=== PATIENT | female | born 1980 | race Caucasian/White ===

== ENCOUNTER → 2019-10-19 15:39 | Outpatient (BNVA) | payer BC, SELFPAY | PROVIDERS: Family Provider Internal Medicine; PCP Internal Medicine; Visit Provider Specialist | DX: G43.711 Chronic migraine without aura, intractable, with status migrainosus (principal); F41.8 Other specified anxiety disorders | CPT/HCPCS: 99213 ==

== ENCOUNTER 2019-12-13 10:01 | Outpatient (REF) | payer BC, SELFPAY ==
[2019-12-13 10:27] LABS: Basophils # 0.1 10^3/uL (0.0-0.1); Basophils % 0.8 %; Eosinophils # 0.2 10^3/uL (0.0-0.8); Eosinophils % 2.3 %; Hematocrit 40.6 % (37.0-47.0); Hemoglobin 12.9 g/dL (11.5-15.3); Lymphocytes # 2.9 10^3/uL (0.8-4.8); Mean Corpuscular HGB Conc 31.8 g/dL (30.0-36.0); Mean Corpuscular Hemoglobin 28.5 pg (28.0-34.0); Mean Corpuscular Volume 89.6 fL (81-99); Mean Platelet Volume 10.3 fL (7.4-10.4); Monocytes # 0.8 10^3/uL (0.2-0.9); Monocytes % 8.5 %; Neutrophils # 5.3 10^3/uL (1.8-7.7); Neutrophils % 57.1 %; Nucleated Red Blood Cells % 0 %; Platelet Count 454 10^3/cmm (130-400); Red Blood Count 4.53 10^6/uL (4.1-5.3); Red Cell Distribution Width 14.1 % (12.1-15.1); White Blood Count 9.2 10^3/uL (4.0-10.0)
[2019-12-14 14:55] LABS: Alternaria Alternata (M6) Ige <0.10 kU/L; Alternaria Class 0; Bermuda Class 0; Bermuda Grass (G2) Ige <0.10 kU/L; Cat Dander (E1) Ige <0.10 kU/L; Cat Dander Class 0; Common Ragweed (Short) (W1) Ig <0.10 kU/L; D. Farinae Class 0/1; Dermatophagoides Class 0/1; Dermatophagoides Farinae (D2) 0.27 kU/L; Dermatophagoides Pteronyssinus 0.24 kU/L; Dog Dander (E5) Ige <0.10 kU/L; Dog Dander Class 0; Elm (T8) Ige <0.10 kU/L; Elm Class 0; English Plantain (W9) Ige <0.10 kU/L; English Plantain Class 0; House Dust (Greer) (H1) Ige 0.46 kU/L; House Dust (Hollister- Stier) 0.34 kU/L; House Dust Class 0/1; House Dust Class 1; Immunoglobulin E 62 kU/L (<OR=114); Immunoglobulin E 65 kU/L (<OR=114); Johnson Grass (G10) Ige <0.10 kU/L; Johnson Grass Cl 0; June Grass Class 0; June Grass(Kentucky Blue) (G8) <0.10 kU/L; Lamb'S Quarters (Goose Foot) <0.10 kU/L; Lamb'S Quarters Class 0; Maple (Box Elder) (T1) Ige <0.10 kU/L; Maple Class 0; Meadow Fescue (G4) Ige <0.10 kU/L; Meadow Fescue Class 0; Mucor Racemosus Class 0; Oak (T7) Ige <0.10 kU/L; Oak Class 0; Orchard Grass (Cocksfoot) (G3) <0.10 kU/L; Penicillium Class 0; Penicillium Notatum (M1) Ige <0.10 kU/L; Perennial Rye Grass (G5) Ige <0.10 kU/L; Perennial Rye Grass Class 0; Ragweeed Class 0; Rough Marsh Elder (W16) Ige <0.10 kU/L; Rough Marsh Elder Class 0; Sweet Vernal Class 0; Sweet Vernal Grass (G1) Ige <0.10 kU/L; Timothy Grass (G6) Ige <0.10 kU/L; Timothy Grass Class 0
[2019-12-15 18:46] LABS: Aspergillus Fumigatus, Igg Ab, 47.1 mg/L (<=102)
== END 2019-12-13 10:02 | disposition home or self-care (01) ==
LOC: LAB 10:01
PROVIDERS: Family Provider Internal Medicine; PCP Internal Medicine; Visit Provider Internal Medicine Critical Care Medicine
DX: R06.02 Shortness of breath (principal)
CPT/HCPCS: 82785; 85025; 86003

== ENCOUNTER 2020-03-08 09:48 | Outpatient (CLI) | payer BC, SELFPAY ==
--- NOTE | 2020-03-08 10:35 | PFTS_ITS ---
Date of Study:03/08/20 Date of Dictation: MECHANICS: Forced vital capacity (FVC) is normal. Forced expiratory volume in one second (FEV1) is normal. FEV1/FVC is normal. FLOW VOLUME LOOP: Normal. LUNG VOLUMES: Total lung capacity (TLC) is normal. Residual volume (RV) is normal. DIFFUSING CAPACITY FOR CARBON MONOXIDE: Normal. INTERPRETATION: The pulmonary function tests are normal. Lung volumes are normal. Gas exchange (DLCO) is normal. MTDD
== END 2020-03-08 09:49 | disposition home or self-care (01) ==
LOC: RT 09:53
PROVIDERS: PCP Internal Medicine; Visit Provider Internal Medicine Critical Care Medicine
DX: R06.02 Shortness of breath (principal)
CPT/HCPCS: 94010; 94726; 94729

== ENCOUNTER → 2024-01-12 10:14 | Outpatient (BNVA) | payer BC, SELFPAY | PROVIDERS: PCP Family Medicine; Referring Provider Family Medicine; Visit Provider Internal Medicine Rheumatology | DX: Z79.899 Other long term (current) drug therapy (principal); M19.90 Unspecified osteoarthritis, unspecified site; Z11.59 Encounter for screening for other viral diseases; Z13.1 Encounter for screening for diabetes mellitus | CPT/HCPCS: 36415; 73130; 73562; 73630; 80076; 82306; 82565; 83036; 83520; 85025; 85651; 86140; 86480; 86704; 86803; 86812; 87340 ==

== ENCOUNTER 2024-08-25 11:17 | Outpatient (CLI) | payer BC, SELFPAY ==
[2024-08-25 12:08] LABS: Basophils # 0.1 10^3/uL (0.0-0.1); Basophils % 1.1 %; Eosinophils # 0.4 10^3/uL (0.0-0.8); Eosinophils % 5.2 %; Hematocrit 33.1 % (36-47); Lymphocytes # 2.2 10^3/uL (0.8-4.8); Lymphocytes % 29.7 %; Mean Corpuscular HGB Conc 30.2 g/dL (30-55); Mean Corpuscular Hemoglobin 25.1 pg (27-33); Mean Corpuscular Volume 83.2 fl (85-98); Mean Platelet Volume 9.4 fL (7.4-10.4); Monocytes # 0.8 10^3/uL (0.2-0.9); Neutrophils # 3.94 10^3/uL (1.8-7.7); Neutrophils % 52.6 %; Nucleated Red Blood Cells % 0 %; Platelet Count 615 10^3/cmm (157-399); Red Blood Count 3.98 10^6/uL (3.85-5.65); Red Cell Distribution Width 16.1 % (12.1-15.1); White Blood Count 7.48 10^3/uL (3.29-11.43)
[2024-08-25 12:19] LABS: Erythrocyte Sedimentation Rate 30 mm/hr (0-15)
[2024-08-25 12:29] LABS: Alanine Aminotransferase 19 U/L (0-33); Albumin Level 3.9 g/dL (3.5-5.2); Alkaline Phosphatase 77 U/L (35-105); Aspartate Amino Transferase 27 U/L (0-32); C Reactive Protein 9.8 mg/L (0.0-4.9); Globulin 3.2 g/dL (1.3-4.6); Glomerular Filtration Rate 133.4 mL/min (90-130); Total Bilirubin 0.2 mg/dL (0.15-1.2); Total Protein 7.1 g/dL (6.6-8.7)
== END 2024-08-25 11:18 | disposition home or self-care (01) ==
PROVIDERS: PCP Family Medicine; Visit Provider Internal Medicine Rheumatology
DX: Z79.899 Other long term (current) drug therapy (principal); M06.00 Rheumatoid arthritis without rheumatoid factor, unspecified site
CPT/HCPCS: 36415; 80076; 82565; 85025; 85651; 86140

== ENCOUNTER 2024-11-29 10:55 | Outpatient (CLI) | payer OTHER, SELFPAY ==
[2024-11-29 11:45] LABS: Basophils # 0.1 10^3/uL (0.0-0.1); Eosinophils # 0.4 10^3/uL (0.0-0.8); Eosinophils % 4.4 %; Hematocrit 33.7 % (36-47); Lymphocytes # 2.7 10^3/uL (0.8-4.8); Lymphocytes % 29.6 %; Mean Corpuscular HGB Conc 30.3 g/dL (30-55); Mean Corpuscular Hemoglobin 24.1 pg (27-33); Mean Corpuscular Volume 79.5 fl (85-98); Mean Platelet Volume 9.8 fL (7.4-10.4); Monocytes # 0.7 10^3/uL (0.2-0.9); Neutrophils # 5.19 10^3/uL (1.8-7.7); Neutrophils % 56.3 %; Nucleated Red Blood Cells % 0 %; Platelet Count 487 10^3/cmm (157-399); Red Blood Count 4.24 10^6/uL (3.85-5.65); Red Cell Distribution Width 17.2 % (12.1-15.1); White Blood Count 9.22 10^3/uL (3.29-11.43)
[2024-11-29 11:52] LABS: Erythrocyte Sedimentation Rate 19 mm/hr (0-15)
[2024-11-29 12:26] LABS: Alanine Aminotransferase 39 U/L (0-33); Alkaline Phosphatase 90 U/L (35-105); Aspartate Amino Transferase 35 U/L (0-32); C Reactive Protein 7.3 mg/L (0.0-4.9); Globulin 2.8 g/dL (1.3-4.6); Glomerular Filtration Rate 107.6 mL/min (90-130); Total Bilirubin 0.2 mg/dL (0.15-1.2); Total Protein 6.8 g/dL (6.6-8.7)
== END 2024-11-29 10:56 | disposition home or self-care (01) ==
LOC: LAB 10:58
PROVIDERS: PCP Family Medicine; Visit Provider Internal Medicine Rheumatology
DX: Z79.899 Other long term (current) drug therapy (principal); M06.00 Rheumatoid arthritis without rheumatoid factor, unspecified site
CPT/HCPCS: 36415; 80076; 82565; 85025; 85651; 86140

== ENCOUNTER → 2025-03-23 12:55 | Outpatient (BNVA) | payer OTHER, SELFPAY | PROVIDERS: PCP Family Medicine; Visit Provider Internal Medicine Rheumatology | DX: Z79.899 Other long term (current) drug therapy (principal) | CPT/HCPCS: 36415; 80076; 82306; 82565; 82607; 84439; 84443; 85025; 85651; 86140 ==

== ENCOUNTER 2025-08-02 11:33 | Outpatient (CLI) | payer OTHER, SELFPAY ==
[2025-08-02 12:10] LABS: Hematocrit 32.4 % (36-47); Hemoglobin 10.00 g/dL (11.27-16.99); Mean Corpuscular HGB Conc 30.9 g/dL (30-55); Mean Corpuscular Hemoglobin 26.4 pg (27-33); Mean Corpuscular Volume 85.5 fl (85-98); Nucleated Red Blood Cells % 0 %; Platelet Count 508 10^3/cmm (157-399); Red Blood Count 3.79 10^6/uL (3.85-5.65); White Blood Count 10.41 10^3/uL (3.29-11.43)
[2025-08-02 12:46] LABS: Alanine Aminotransferase 33 U/L (0-33); Albumin Level 4.1 g/dL (3.5-5.2); Alkaline Phosphatase 75 U/L (35-105); Aspartate Amino Transferase 34 U/L (0-32); Globulin 3.0 g/dL (1.3-4.6); Total Protein 7.1 g/dL (6.6-8.7)
== END 2025-08-02 11:34 | disposition home or self-care (01) ==
LOC: LAB 11:35
PROVIDERS: PCP Family Medicine; Visit Provider Internal Medicine Rheumatology
DX: Z79.899 Other long term (current) drug therapy (principal); M06.041 Rheumatoid arthritis without rheumatoid factor, right hand; M06.042 Rheumatoid arthritis without rheumatoid factor, left hand; E55.9 Vitamin D deficiency, unspecified
CPT/HCPCS: 36415; 80076; 82306; 82565; 85025; 85651; 86140

== ENCOUNTER 2025-08-14 00:26 | Emergency (ER) | payer OTHER, SELFPAY ==
[2025-08-14] VITALS (7 sets, daily range): BP systolic 109–177; BP diastolic 64–88; PULSE 102–116; RESP 18–25; TEMP 37.5–37.6; O2SAT 90–97
--- OUTSIDE RECORDS SUMMARY | 2025-08-14 00:36 | XMS_ITS | Encounter Summary ---
Author Organization [facility] Address [address] [place] [address] Care Team Providers Care Head Worker Name Role Phone Unavailable Primary Care Provider Unavailabl e Encounter Details Date Type Department Care Team (Latest Contact Info) Description 10/19/2003 Outpatient Historical [facility] Medicine- [address] [phone] Eugene Giordano MD [address] [address] MIGRAINE NOS W/O MENTN INTRACTABLE (Primary Dx) Social History Tobacco Use Types Packs/Day Years Used Date Smoking Tobacco: Never Assessed Comments Unknown Sex and Gender Information Value Date Recorded Sex Assigned at Not on file Legal 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
--- OUTSIDE RECORDS SUMMARY | 2025-08-14 00:36 | XMS_ITS | Encounter Summary ---
Author Organization [facility] Address [address] [place] [address] Care Team Providers Care Framing Machine Tender Name Role Phone Unavailable Primary Care Provider Unavailabl e Encounter Details Date Type Department Care Team (Latest Contact Info) Description 12/12/2003 Outpatient Historical 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
--- OUTSIDE RECORDS SUMMARY | 2025-08-14 00:36 | XMS_ITS | Encounter Summary ---
Author Organization [facility] Address [address] [place] [address] Care Team Providers Care Manager Women Name Role Phone Unavailable Primary Care Provider Unavailabl e Encounter Details Date Type Department Care Team (Latest Contact Info) Description 04/25/2004 Outpatient Historical [facility] Medicine- [address] [phone] Laura Trejo [address] [place] [address] MIGRAINE NOS W/O MENTN INTRACTABLE (Primary Dx) Social History Tobacco Use Types Packs/Day Years Used Date Smoking Tobacco: Never Assessed Comments Unknown Sex and Gender Information Value Date Recorded Sex Assigned at Not on file 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
--- OUTSIDE RECORDS SUMMARY | 2025-08-14 00:36 | XMS_ITS | Encounter Summary ---
Author Organization [facility] Address [address] [place] [address] Care Team Providers Care A And P Mechanic Name Role Phone Unavailable Primary Care Provider Unavailabl e Encounter Details Date Type Department Care Team (Latest Contact Info) Description 11/16/2003 Outpatient Historical [facility] Medicine- [address] [phone] Eugene Giordano MD [address] [phone] MIGRAINE NOS W/O MENTN INTRACTABLE (Primary Dx) Social History Tobacco Use Types Packs/Day Years Used Date Smoking Tobacco: Never Assessed Comments Unknown Sex and Gender Information Value Date Recorded Sex Assigned at Not on file 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
--- OUTSIDE RECORDS SUMMARY | 2025-08-14 00:36 | XMS_ITS | Encounter Summary ---
Author Organization [facility] Address [address] [place] [address] Care Team Providers Care Seafood Fisherman Name Role Phone Unavailable Primary Care Provider Unavailabl e Encounter Details Date Type Department Care Team (Latest Contact Info) Description 01/25/2004 Outpatient Historical [facility] Medicine- [address] [phone] Eugene Giordano MD [address] [phone] FEVER (Primary Dx) Social History Tobacco Use Types Packs/Day Years Used Date Smoking Tobacco: Never Assessed Comments Unknown Sex and Gender Information Value Date Recorded Sex Assigned at Not on file 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
--- OUTSIDE RECORDS SUMMARY | 2025-08-14 00:36 | XMS_ITS | Encounter Summary ---
Author Organization [facility] Address [address] [place] [address] Care Team Providers Care Armature Winder Repair Name Role Phone Unavailable Primary Care Provider Unavailabl e Encounter Details Date Type Department Care Team (Latest Contact Info) Description 12/20/2003 Outpatient Historical [facility]- Nahum Rosasnn Alysa [address] [phone] Heaven Edwards, SANFORIZING MACHINE OPERATOR [address] [place], [place] [phone] ACUTE CONJUNCTIVITIS NOS (Primary Dx); ACUTE SINUSITIS NOS Social History Tobacco Use Types Packs/Day Years Used Date Smoking Tobacco: Never Assessed Comments Unknown Sex and Gender Information Value Date Recorded Sex Assigned at Not on file Legal Sex Female 2:36 AM SEAT COVER CUTTER Gender Identity Not on file Sexual Orientation Not on file documented as of this encounter Plan of Treatment Not on file documented as of this encounter Visit Diagnoses Diagnosis Acute conjunctivitis, unspecified- Primary Acute sinusitis, unspecified documented in this encounter
--- OUTSIDE RECORDS SUMMARY | 2025-08-14 00:37 | XMS_ITS | Encounter Summary ---
Author Organization [facility] Address [address] [place] [address] Care Team Providers Care Technical Document Writer Name Role Phone Unavailable Primary Care Provider Unavailabl e Encounter Details Date Type Department Care Team (Latest Contact Info) Description 06/08/[address] 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
--- OUTSIDE RECORDS SUMMARY | 2025-08-14 00:37 | XMS_ITS | Encounter Summary ---
Author Organization [facility] Address [address] [place] [address] Care Team Providers Care Test Rider Name Role Phone Unavailable Primary Care Provider Unavailabl e Encounter Details Date Type Department Care Team (Latest Contact Info) Description 03/31/2000 Outpatient Historical [facility] [place]- [place] [address] [place] [phone] Laura Lui [address] [place] [address] Streptococcal sore throat (Primary Dx) Social History Tobacco Use Types Packs/Day Years Used Date Smoking Tobacco: Never Assessed Comments Unknown Sex and Gender Information Value Date Recorded Sex Assigned at Not on file Legal Sex Female 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
--- OUTSIDE RECORDS SUMMARY | 2025-08-14 00:37 | XMS_ITS | Encounter Summary ---
Author Organization [facility] Address [address] [place] [address] Care Team Providers Care Ct Technologist Name Role Phone Unavailable Primary Care Provider Unavailabl e Encounter Details Date Type Department Care Team (Latest Contact Info) Description 07/30/1999 Outpatient Historical [facility] Oneal Lewis MD [address] [place] [phone] Acute tonsillitis (Primary Dx) Social History Tobacco Use Types Packs/Day Years Used Date Smoking Tobacco: Never Assessed Comments Unknown Sex and Gender Information Value Date Recorded Sex Assigned at Not on file Legal 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
--- OUTSIDE RECORDS SUMMARY | 2025-08-14 00:37 | XMS_ITS | Clinical Summary ---
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 Gender Identity Not on file Sexual Orientation Not on file Plan of Treatment Health Maintenance Due Date Last Done Comments DTAP/TDAP/TD VACCINES (1 - Tdap) 1997 HEPATITIS B VACCINES (1 of 3 - 19+ 3-dose series) 1997 01/28/2003, 08/20/2002, 07/02/2002 HPV/Cotest (21-29) 1999 CERVICAL CANCER SCREENING 2008 HPV/Cotest (30-65) 2008 PAP SMEAR 2008 BREAST CANCER SCREENING 2018 COLORECTAL SCREENING 2023 Colorectal Cancer Screening 2023 FIT-DNA Q 3 years 2023 FIT/FOBT Q 1 year 2023 Flex Sig/CT Colonography Q 5 years 2023 INFLUENZA VACCINE (#1) 2025 HPV VACCINES Aged Out No longer eligi ble based on patient's age to complete this topic
--- OUTSIDE RECORDS SUMMARY | 2025-08-14 00:37 | XMS_ITS | Data Portability ---
Author Organization [place] [facility] Address [address] [address] Care Team Providers Care Senior Architect Name Role Phone JUDITH VASQUEZ Primary Care Provider [phone] Assessment Encounter Date Assessment Date Assessment LastModified by Organization Details LastModified Time 02/16/2018 02/16/2018 15 min exam and discussion, over 50% face to face counseling [email or web address] Not available 02/16/2018 18:26:01 02/18/2018 02/18/2018 25 min exam and discussion, over 50% face to face counseling [email or web address] Not available 02/18/2018 10:30:18 Plan of Treatment Reminders Order Date Submit Date Provider Last Modified By Organization Details Last Modified Time Details Appointments None recorded. Lab lh (luteinizi ng hormone), serum 2017 018 BO [facility], [address], [place], [address], 8 17:04:13 Referral None recorded. Procedures artificial inseminati on, intrauteri ne (PROC) 2017 018 [email or web address] Not available 8 10:50:36 sperm washing for artificial inseminati on (PROC) 2017 018 BO Not available 8 12:07:21 sperm washing for artificial inseminati on (PROC) 2016 017 [email or web address] Not available 7 11:18:44 artificial inseminati on, intrauteri ne (PROC) 2016 017 [email or web address] Not available 7 12:03:36 Surgeries None recorded. Imaging US, transvagin al 2017 018 BO Not available 8 11:54:33 US, transvagin al 2017 018 BO Not available 8 11:52:33 US, transvagin al 2017 018 BO Not available 8 12:50:38 Medication Orders letrozole 2.5 mg tablet 2017 018 INTERFACE [id number], [address], [place], [place], [id number], 8 12:20:32 dexamethas one 2 mg tablet 2017 018 INTERFACE [facility] #[id number], [address], [place], [place], [id number], 8 12:20:32 Ovidrel 250 mcg/0.5 mL subcutaneo us syringe 2017 018 INTERFACE [facility], [address] [place] [address], [address], 8 12:29:18 Patient TargetsNo targets recorded. Patient InstructionsNo instructions recorded. Reason for Referral None Reported. Results Created Date Observation Date Name Description Value Unit Range Abnormal Flag Note LastModifiedBy Organization Detail LastModifiedTime 07/18/20 17 07/18/2017 sperm washi ng for artif icial insem inati on (PROC ) PRE-WASH MOTILE Not Available [facility] [address], [place], [address], 07/18/2017 11:15:42 07/18/20 17 07/18/2017 sperm washi ng for artif icial insem inati on (PROC ) POST-WASH MOTILE Not Available [facility] [address], [place], [address], 07/18/2017 11:15:42 07/18/20 17 07/18/2017 sperm washi ng for artif icial insem inati on (PROC ) PRE-WASH VOLUME 4.5cc Not Available [facility] [address], [place], [address], 07/18/2017 11:15:42 07/18/20 17 07/18/2017 sperm washi ng for artif icial insem inati on (PROC ) INSEMINATION VOLUME 0.5cc Not Available [facility] [address], [place], [address], 07/18/2017 11:15:42 07/18/20 17 07/18/2017 sperm washi ng for artif icial insem inati on (PROC ) INSEMINATION BY HUSBAN D Not Available [facility] [address], [place], [address], 07/18/2017 11:15:42 03/02/20 18 03/02/2018 sperm washi ng for artif icial insem inati on (PROC ) PRE-WASH MOTILE Not Available [facility] [address], [place], [address], 02/18/2018 10:23:07 03/02/20 18 03/02/2018 sperm washi ng for artif icial insem inati on (PROC ) POST-WASH MOTILE Not Available [facility] [address], [place], [address], 02/18/2018 10:23:07 03/02/20 18 03/02/2018 sperm washi ng for artif icial insem inati on (PROC ) INSEMINATION VOLUME 0.4cc Not Available [facility] [address], [place], [address], 02/18/2018 10:23:07 03/02/20 18 03/02/2018 sperm washi ng for artif icial insem inati on (PROC ) INSEMINATION BY HUSBAN D Not Available [facility] [address], [place], [address], 02/18/2018 10:23:07 07/07/20 17 07/07/2017 US, trans vagin al No observ ation record ed. Not Available 2016 15:05:43 07/08/20 17 07/07/2017 imagi ng/di agnos tic resul t No observ ation record ed. [facility] Not Available 2016 07:58:42 07/14/20 17 07/14/2017 US, trans vagin al No observ ation record ed. [email or web address] Not Available 2016 10:52:49 07/15/20 17 07/14/2017 imagi ng/di agnos tic resul t No observ ation record ed. [facility] [address] [facility] [address], [place], [address], 07/15/2017 17:33:12 02/07/20 18 US, trans vagin al No observ ation record ed. [email or web address] Not Available 2017 11:48:16 02/11/20 18 02/06/2018 imagi ng/di agnos tic resul t No observ ation record ed. [facility] [address] [facility] [address], [place], [address], 02/10/2018 16:37:40 02/14/20 18 US, trans vagin al No observ ation record ed. [email or web address] Not Available 2017 11:52:13 02/17/20 18 02/16/2018 US, trans vagin al No observ ation record ed. [email or web address] Not Available 2017 13:47:21 02/17/20 18 02/13/2018 imagi ng/di agnos tic resul t No observ ation record ed. [facility] [address], [place], [address], 02/16/2018 16:15:52 02/18/20 18 02/16/2018 imagi ng/di agnos tic resul t No observ ation record ed. [facility] [address], [place], [address], 02/17/2018 10:27:25 Result Notes None recorded. Problems Name Problem SNOMED Code Status Onset Date Resolution Date Notes Provider Name and Address Organization Details Recorded Time History of anemia 092561631 Active 2016 sister and maternal grandmother have had issues with iron level as well pt is getting rechecked in 01/2017 [place] - [facility] 7 18:01:59 Migraine 16417616 Active 2016 Bowen HOWARD Sharma - [facility] [place] 7 18:02:12 Nausea 812840605 Active 2016 Mild Bowen Carlton rosa [place] - [facility] [place] 7 14:17:43 Problem Notes None recorded. Procedures Surgical History Date Name Laterality Status Provider Name and Address Organization Details Recorded Time 8 Artificial Insemination, (AIH) completed Lana Carroll MSN, CNP- [address] [facility] [address], [place], [address], [facility] 02/18/2018 10:22:52 Imaging Results None recorded. Procedure Notes None recorded. Medical Equipment None Reported. Allergies Allergen ID Allergen Name Allergen Category Reaction Reaction Severity Criticality Documentation Date Start Date Code Code System Note Provider Name and Address Organization Details Recorded Time 49316 Substance with sulfonami de structure and antibacte rial mechanism of action (substanc e) medicatio n Not available Not available Not available 12/02/2016 68462 8003 SNOMED HOWARD Jurado - [facility] [place] 7 15:27:57 17758 erythromy kayden medicatio n Not available Not available Not available 12/02/2016 4053 RxNorm HOWARD Jurado - [facility] [place] 7 15:28:04 34706 Topamax medicatio n Not available Not available Not available 12/02/2016 88331 3 RxNorm Crystal lee [place] - [facility] [place] 7 15:28:14 Medications Name Sig Start Date Stop Date Status Note LastModified by Organization Details LastModified Time medroxypr ogesteron e 10 mg tablet TK 1 T PO QD FOR 10 DAYS 02/18 completed Not Available Not Available Not Available budesonid e 32 mcg/actua tion nasal spray USE 2 SPRAYS IN EACH NOSTRIL QD. 12/02 completed Not Available Not Available Not Available promethaz ine-DM 6.25 mg-15 mg/5 mL oral syrup TK 5-10 ML TID 02/06 completed Not Available Not Available Not Available prednison e 10 mg tablet 03/17 completed Not Available Not Available Not Available doxycycli ne hyclate 100 mg capsule 12/02 completed Not Available Not Available Not Available cefuroxim e axetil 250 mg tablet 12/02 completed Not Available Not Available Not Available ofloxacin 0.3 % eye drops 12/02 completed Not Available Not Available Not Available clomiphen e citrate 50 mg tablet TK 2 TS PO QD DIRECTED FOR 5 DAYS 02/18 completed Not Available Not Available Not Available prednison e 20 mg tablet 02/06 completed Not Available Not Available Not Available prednison e 5 mg tablet 12/02 completed Not Available Not Available Not Available amoxicill in 875 mg tablet TK 1 T PO BID 02/06 completed Not Available Not Available Not Available doxycycli ne monohydra te 100 mg capsule 02/06 completed Not Available Not Available Not Available dexametha sone 2 mg tablet Take 1 tablet every day by oral route as directed for 10 days. active Not Available Not Available No t Available ferrous sulfate 325 mg (65 mg iron) tablet TK 1 T PO D 12/02 completed Not Available Not Available Not Available neomycin- polymyxin -dexameth 3.5 mg/mL-10, 000 unit/mL-0 .1% eye drops 02/06 completed Not Available Not Available Not Available promethaz ine 25 mg tablet 12/02 completed Not Available Not Available Not Available progester one micronize d 200 mg capsule TK 1 C PO QD UTD active Not Available Not Available No t Available estradiol 2 mg tablet one daily as directed active Not Available Not Available No t Available monteluka st 10 mg tablet TK 1 T PO QD active Not Available Not Available No t Available ergocalci ferol (vitamin D2) 1,250 mcg (50,000 unit) capsule TK 1 C PO Q WK UTD 02/06 completed Not Available Not Available Not Available letrozole 2.5 mg tablet Take 3 tablets every day by oral route as directed for 5 days. active Not Available Not Available No t Available loratadin e 10 mg tablet TK 1 T PO D 02/18 completed Not Available Not Available Not Available amoxicill in 875 mg-potass ium clavulana te 125 mg tablet 12/02 completed Not Available Not Available Not Available [employer]-[facility] 30 mg tablet TAKE 1 TO 2 TABLETS PO QID PRN 02/06 completed Not Available Not Available Not Available Ovidrel 250 mcg/0.5 mL subcutane ous syringe Inject 0.5 mL every day by subcutan eous route as directed for 1 day. 2017 active Not Available Not Available Not Avai lable Mucinex D 60 mg-600 mg tablet,ex tended release TK 1 T PO BID 12/02 completed Not Available Not Available Not Available Vitamin C active Not Available Not Melissa ilable Not Available Maxitrol 07/07 completed Not Available Not Available Not Available garlic active Not Available Not Availa ble Not Available Excedrin Migraine active Not Available Not Available Not Available active Not Available Not Avai lable Not Available Leg Cramp Relief active Not Available Not Available Not Available ProAir HFA 90 mcg/actua tion aerosol inhaler INHALE 1 TO 2 PUFFS PO TID UNTIL COUGH IS COMPLETE LY GONE active Not Available Not Available No t Available Symbicort 160 mcg-4.5 mcg/actua tion HFA aerosol inhaler Inhale 2 puffs twice a day by inhalati on route. 07/07 completed Not Available Not Available Not Available loratadin e 10 mg capsule Take by oral route. 02/18 completed allergy medicati on Not Available Not Available Not Available Vitals Date Recorded Body height Body mass index (BMI) Body weight Systolic And Diastolic Provider Name and Address Organization Details Last Updated DateTime 02/06/2018 165.1 cm 34.9 kg/m2 40258.4 g 110/72 mm[Hg] Catherine Antonio [place] - [facility] [place] 02/06/2018 11:54:38 Date Recorded Body height Body mass index (BMI) Body weight Systolic And Diastolic Provider Name and Address Organization Details Last Updated DateTime 02/13/2018 165.1 cm 34.9 kg/m2 58656.4 g 106/62 mm[Hg] Bravo Major [place] - [facility] [place] 02/13/2018 11:55:36 Date Recorded Body height Body mass index (BMI) Body weight Systolic And Diastolic Provider Name and Address Organization Details Last Updated DateTime 02/16/2018 165.1 cm 35.1 kg/m2 85429.99 g 96/66 mm[Hg] Bushra Dooley [place] - [facility] [place] 02/16/2018 14:03:41 Date Recorded Body height Body mass index (BMI) Body weight Systolic And Diastolic Provider Name and Address Organization Details Last Updated DateTime 02/18/2018 165.1 cm 35.1 kg/m2 90141.99 g 116/68 mm[Hg] Bravo Major [place] - [facility] [place] 02/18/2018 09:44:17 Date Recorded Body height Body mass index (BMI) Body weight Systolic And Diastolic Provider Name and Address Organization Details Last Updated DateTime 07/18/2017 165.1 cm 39.4 kg/m2 107805.39 g 122/74 mm[Hg] Catherine Antonio [place] - [facility] [place] 07/18/2017 10:37:57 Social History Question Answer Notes LastModified by Organizat ion Details LastModified Time Tobacco Smoking Status Never Smoker HOWARD Jurado - [facility] [place] 12/02/2016 15:30:37 What Is Your Level Of Caffeine Consumption? Moderate [email or web address] Information not available 12/02/2016 Illicit Drugs No Information not available 12/02/2016 Marital Status [email or web address] Informatio n not available 12/02/2016 What Was The Date Of Your Most Recent Tobacco Screening? 02/18/2018 Information n ot available 04/07/2019 How Many Children Do You Have? 0 [email or web address] Information not available 12/02/2016 Are You Sexually Active? Yes [email or web address] Information not available 12/02/2016 How Much Tobacco Do You Smoke? No Information not available 02/18/2017 How Many Years Have You Smoked Tobacco? 0 Information not available 02/18/2017 Sex: Unknown Functional Status Question Answer Note LastModified by Organization Details LastModified Time What is your level of alcohol consumption? Occasional [email or web address] Information not available 12/02/2016 Urinary incontinence assessment performed? 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 Occasional [email or web address] Information not available 07/14/2017 Mental Status None recorded. Family History Relationship Description Onset Age of this Age Resolved Age Notes LastModified by Organization Details LastModified Time Maternal Grandmother Malignant neoplasm of uterus [email or web address] Not available 2016 17:58:08 Maternal Grandmother Malignant neoplasm of skin [email or web address] Not available 2016 17:58:43 Maternal Grandmother Hypoglycemia [email or web address] Not available 12/23/2016 17:59:36 Paternal Grandmother Malignant neoplasm of uterus [email or web address] Not available 2016 17:58:08 Paternal Grandmother Malignant neoplasm of lung due to smokin g Not available 12/23/2016 18:00:14 Mother Malignant neoplasm of skin [email or web address] Not available 2016 17:58:43 Mother Hypertensive disorder [email or web address] Not available 2016 17:58:49 Mother Hypothyroidi sm Hashim luis's [email or web address] Not available 12/23/2016 17:59:18 Sister Endometriosi s of uterus Hyst [email or web address] Not available 12/14 18:00:47 Notes:pre cx/ec cancer- sist er Medical History Condition Response Diabetes N Blood Clots/DVT N Ovarian cancer N Influenza Vaccine Y Thyroid disease N Endometriosis N Breast Cancer N Hyperlipidemia N Heart Disease N Hypertension N Gynecological History Statement/Question Response Last Biopsy Date Denies Prior pap date 05/2016 Duration of Flow (days) 5 Prior DXA date None Prior Mammogram date None If over 50 or menopausal current vit d d ose 50,000 iu Prior colonoscopy date N Significant pain with periods? N Current Control Method None Frequency of Cycle (Q days) 28 daily calcium supplement intake none Date of LMP 02/03/18 Obstetrics History GPAL:G 1 P 0 0 1 0 Type Value Spontaneous 1 Total 1 Past Encounters Encounter ID Performer Location Encounter Start Date Encounter Closed Date Diagnosis/Indication Diagnosis SNOMED-CT Code Diagnosis ICD10 Code Diagnosis IMO Codes Diagnosis Note [id number] Crist[facility] [address], [address] [place] [address] 12/02/2016 14:56:44 12/10/2016 15:44:02 Female infertility 2552362 N97.9 *Nathaly, 36 yo G0 - trying to conceive x 7 yrsPrior workup 4 years ago but recalls very little about workup or treatment (clomid x 4 cycles, monitored) - at this time does not recall name of clinic/phy sicianreco mmended lp progestero ne (script given for p4, vit d, prolactin, tsh, abo-rh, rubella immunitywi ll call with cycle day 1 to schedule ovarian function testing (amh, lh, fsh, e2, afc)discus sed femvue hsg versus hospital basedSA for (order given)disc ussed coh-hi vs iui vs adoption vs ivfrec. weight loss with healthy diet/exerc ise [id number] Cristal Krishnamurthy APRN, [employer] [facility] [address], [address] [place] [address] 12/23/2016 16:23:04 12/25/2016 10:20:18 Urine test negative 801463520 Z32.02 Infertility study 828421 06 Z31.41 *SIS reveals normal endometria l cavity - FemVue Sono HSG performed - Saline-Air contrast was seen exiting the catheter, entering the right and left proximal tubes (Zone 1), and flowing in the distal tubes (Zone 2). Contrast was also seen exiting the tubes and in the cul-de-sac (Zone 3). Bilateral patency was determined AFC left 12/right 16discusse d coh-hi vs iui - will plan clomid 100 cd 5-9, vaginal e2 cd 10-11, fs cd 12, sa normalclom id consent signed, risks of multiples and possible cycle cancellati on discussedl abs pending (will call for results tomorrow)l abs reviewed: e2 27, lh 5.9, fsh 5.7, vit d 16 (will start vit d 50,000 weekly x 8 wks then recheck), prolactin 15.8, abo O+, rubella immune [id number] Cristal Krishnamurthy APRN, [employer] [facility] [address], [address] [facility] [place] [address] 12/30/2016 13:32:15 01/01/2017 09:06:19 Infertility study [id number] Z31.41 *fs cd 12 s/p clomid 100et 6.88left follicle 10.7mmrigh t follicles 10.3, 8.3, 9.5, 10.9repeat fs cd 15if no response will plan letrozole next cycleheada ches/nause a with clomidscri pt for tsh/amh [id number] Cristal Krishnamurthy APRN, [facility] [address], [address] [facility] [place] [address] 01/02/2017 09:47:54 01/02/2017 14:01:21 Infertility study [id number] Z31.41 *fs cd 15 s/p clomid 100et 9mminadequ ate follicular growthrec. lh kits/timed icif no cycle in 2 wks she will perform upt and call for proveralet rozole 7.5 next cycleHus nd may have jury duty next [place] [id number] Cristal Krishnamurthy APRN, [facility] [address], [address] [facility] [place] [address] 02/18/2017 09:06:56 02/19/2017 11:24:47 Infertility study [id number] Z31.41 baseline scan cd 5et 2.79mmmult iple nabothian cysts again noted>20 antral follicles bilno response to clomid 100 - patient experience d migrainesw ill plan letrozole 7.5 x 5 - discussed possible cycle cancelatio n if multiple folliclesc onsent signed/dis cussed/obdulia l perform upt prior to starting medfs cd 12 - patient needs to have amh and tsh drawn (she requests to have them drawn at [facility] so they are covered) [id number] Cristal Krishnamurthy APRN, [facility] [address], [address] [facility] [place] [address] 02/25/2017 11:19:47 02/28/2017 09:08:01 Infertility study [id number] Z31.41 fs cd 12et 8.53mmleft follicles 18.4, 20.4plan stat lh, ovidrel, hilh 8.9, plan trigger then ic 36 hours later followed by ic the next dayupt 2 wks from target ic date [id number] Cristal Krishnamurthy APRN, [place] [address] [facility] [place] [address] 03/17/2017 13:57:27 03/19/2017 09:23:46 Infertility study [id number] Z31.41 baseline scan cd 12, cycle #2et 2.8 mmovaries/ uterus normalplan letrozole 7.5mg x 5 days cd 5-9, fs cd 12upt prior to starting med [id number] Cristal Krishnamurthy APRN, [place] [address] [facility] [place] [address] 03/24/2017 14:27:35 03/26/2017 08:41:28 Infertility study [id number] Z31.41 fs cd 12et 6.52mmrigh t follicles 19.3, 18.6mmstat lh 6.0 - plan estrogen tonight, ovidrel tomorrow - target ic 36 hours post trigger, upt 2 wks [id number] Cristal Krishnamurthy APRN, [place] [address], [address] [place] [address] 04/11/2017 10:47:50 04/14/2017 14:58:02 Infertility study [id number] Z31.41 *baseline scan cd 3ovaries/u terus normalplan letrozole 7.5 x 5 cd 5-9, vaginal e2 cd 10-12, dexamethas one 2mg cd 5-12, fs cd 13, considerin g iui this cycle if good responsepa tient has performed a upt [id number] Cristal Krishnamurthy APRN, [facility] [address], [address] [facility] [place] [address] 04/21/2017 14:07:27 04/22/2017 11:59:07 Infertility study [id number] Z31.41 *fs cd 13et 7.57mmrigh t follicles 24.7, 16.5mmlh 53.3, p4 .84plan iui tomorrow morning - no trigger [id number] Cristal Krishnamurthy APRN, [facility] [address], [address] [place] [address] 04/22/2017 10:49:37 04/23/2017 12:36:02 Female infertility 6278403 N97.9 *IUI cd 14cath to 7cmsample slowly deliveredr ecumbent x 30 min post procedures tart prometrium tomorrow hs x 2 wks then uptic tomorrowct 55 mil/.5cc - 70% motility, 20% 3+, 50% 1-2 + [id number] Cristal Krishnamurthy APRN, [facility] [address], [address] [place] [address] 05/09/2017 10:10:08 05/13/2017 08:48:28 Renewal of prescription 089408746 Z76.0 *patient took x 4 wks then lost script - will continue x 8 wks then repeat level Infertility study [id number] 06 Z31.41 *baseline scan cd 3et 3.3mmafc cycle #3 - (has done 2 hi and 1 iui cycle) - not interested in ivfplan letrozole 5 x 5 cd 3-7, dexamethas one 2mg cd 3-12, fs cd 11, planning iuidiscuss ed adding fsh - however patient has responded well with 2 follicles each cyclepatie nt never did have amh/tsh checked - has script to have labs drawn in [facility] prior to starting med [id number] L[facility] WATTS, [facility] [address], [address] [place] [address] 05/17/2017 10:23:49 05/20/2017 10:49:18 Infertility study [id number] Z31.41 *FS CD 11, ET=7.79, 2 left follicles, 19.2, 18.5 mmStat LH =6.6Plan:O K for ic tonight, Trigger Friday 8 AM, IUI Friday , 05-19-, 6 PM, Will be here at 5 PM to collect sampleCont inue Vaginal e2 nightlyCal l with questions or concerns [id number] Cristal Krishnamurthy APRN, [facility] [address], [address] [place] [address] 05/19/2017 17:59:16 05/29/2017 12:44:29 Female infertility 6165730 N97.9 *IUI cd 13cath to 7cm (insemi)sa mple slowly deliveredr ecumbent x 30 min post procedures tart prometrium tomorrow hs x 2 wks then uptic tomorrowct 70 mil/.5cc - 70% motility, 20% 3+, 50% 1-2 +, 30% non-motile [id number] Cristal Krishnamurthy APRN, [facility] [address], [address] [place] [address] 07/07/2017 13:58:13 07/10/2017 09:18:58 Infertility study [id number] Z31.41 * baseline scan cd 4normal uterus/ova riesplan letrozole 7.5 x 5 cd 4-8, dexamethas one 2mg cd 4-13, fs cd 11, plan ovidrel/iu iupt negative (home) [id number] Cristal Krishnamurthy APRN, [employer] [place] [address], [address] [place] [address] 07/14/2017 10:12:29 07/16/2017 12:41:08 Infertility study [id number] Z31.41 *fs cd 11et 6.38mmleft follicles 15.1, 12.8right follicles 16.3, 10.1plan stat lh,ovidrel , iuilh 5.1 - plan trigger cd 13, iui cd 15 [id number] Cristal Krishnamurthy APRN, [employer] [facility] [address], [address] [place] [address] 07/18/2017 09:26:47 07/22/2017 13:14:10 Female infertility 0017645 N97.9 * IUI cd 15cath to 7cm (pediatric feeding tube cath) with easesample slowly deliveredr ecumbent x 20 min post procedures tart prometrium tomorrow hs vaginally x 2 wks then upt [id number] Cristal Krishnamurthy APRN, [facility] [address], [address] [facility] [place] [address] 02/06/2018 11:22:55 02/10/2018 14:11:17 Infertility study [id number] Z31.41 *baseline scan cd 4, normal uterus/ova riesplan letrozole 7.5 x 5, dex 2mg x 10, fs, ovidrel, iuihas already performed a uptdiscuss ed ivf referral if not after this cycle - will discuss with [id number] Cristal Krishnamurthy APRN, [facility] [address], [address] [facility] [place] [address] 02/13/2018 11:01:05 02/16/2018 11:55:40 Infertility study [id number] Z31.41 *fs cd 11, et 6.94mmleft follicles 12.5, 9.7right follicles 12.6, 11.8plan repeat fs cd 14planning iuiif inadequate response would consider adding fsh - however patient states she and her will need to discuss - they may not be pursuing further treatment [id number] Lana Carroll MSN, [facility] [address], [address] [facility] [place] [address] 02/16/2018 13:27:04 02/17/2018 09:12:00 Infertility study [id number] Z31.41 *FS CD 14, ET=9.68, 18.0, left follicle- 18 mm, right follicle 16.6 mmStat LH =8.0Plan:T gill box 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 Will collect here at 8 AM and IUI to followOk to Dc E2 for now, Has Ovidrel at homelive 2 hours awayCall with questions or concerns [id number] Lana Carroll MSN, [facility] [address], [address] [facility] [place] [address] 02/18/2018 08:53:57 02/23/2018 19:00:38 Female infertility [id number] N97.9 *IUI CD 16Prewash sample=4cc , count approx. >150 million/ml , mostly 3+ motility,P ostwash sample 0.5cc, Count approx 100 million/ml ., (3+ 60%, 2+20%, 1+5%), 15% or nonmotile. Instilled to high fundal location, with peds feeding tube with some difficulty to AF uterus, pt bladder was empty, Pt tolerated well, released in stable condition after recumbent rest x 20 min.Review ed routine post procedure care and warnings.P t has prometrium Rx at home. UPT 2 weeks. Call w/ problems or concerns. Health Concerns Section Related Observation LastModified by Organization Detai ls LastModified Time None Recorded Concern Status LastModified by Organization Details LastModified Time None Recorded Advance Directives Directive None Recorded Payers Insurance Date Sequence Insurance Name Policy Number Policy Collado Covered Member ID Collado Member ID Guarantor Name 02/23/2018 1 [place] [id number] Laura Raymundo [id number] Laura Raymundo Notes Date Note Type Note Provider Name and Address Organization Details Recorded Time 07/18/2017 text/html Here for IUI. Cristal Krishnamurthy APRN, [address], [place] [address], [place], [address], [place] - [facility] 07/18/2017 11:18:54 02/06/2018 text/html Here for baseline scan.Patient has lost weight since her last visit - she was told by her pcp that she may need to be placed on medication for elevated blood sugar. Cristal Krishnamurthy APRN, [address], [place] [address], [place], [address], [place] - [facility] 02/06/2018 16:48:05 02/13/2018 text/html Here for follicle study. Cristal Krishnamurthy APRN, [address], [place] [address], [place], [address], [place] - [facility] 02/13/2018 13:27:09 02/16/2018 text/html FS CD 14 Lana Carroll MSN, [facility]- [address], [address] [facility], [place], [address], [place] - [facility] 02/16/2018 18:26:07 02/18/2018 text/html IUI CD 16 Lana WATTS, [facility]- [address], [address], [place], [address], [place] - [facility] 02/18/2018 10:30:22 OBGyn Episode No OBEpisode recorded.
--- OUTSIDE RECORDS SUMMARY | 2025-08-14 00:37 | XMS_ITS | Encounter Summary ---
Author Organization [facility] Address [address] [place] [address] Care Team Providers Care Rn Faculty Name Role Phone Unavailable Primary Care Provider Unavailabl e Encounter Details Date Type Department Care Team (Late st Contact Info) Description 08/10/2003 Outpatient Historical [facility] Lynn Bowie [address] [place] [address] Albania Villalobos, DO 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
--- OUTSIDE RECORDS SUMMARY | 2025-08-14 00:37 | XMS_ITS | Encounter Summary ---
Author Organization [facility] Address [address] [place] [address] Care Team Providers Care Telephone Mechanic Name Role Phone Unavailable Primary Care Provider Unavailabl e Encounter Details Date Type Department Care Team (Latest Contact Info) Description 10/15/2002 Outpatient Historical [facility] Medicine- [address] [phone] Eugene Giordano MD [address] [address] CLASS MIGRAIN W/O MENTN INTRACTABLE (Primary Dx) Social History Tobacco Use Types Packs/Day Years Used Date Smoking Tobacco: Never Assessed Comments Unknown Sex and Gender Information Value Date Recorded Sex Assigned at Not on file Legal Sex Female 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
--- OUTSIDE RECORDS SUMMARY | 2025-08-14 00:37 | XMS_ITS | Encounter Summary ---
Author Organization [facility] Address [address] [place] [address] Care Team Providers Care Tap And Die Maker Technician Name Role Phone Unavailable Primary Care Provider Unavailabl e Encounter Details Date Type Department Care Team (Latest Contact Info) Description 06/28/1999 Outpatient Historical [facility] Oneal Lewis MD [address] [place] [phone] Unspecified sinusitis (chronic) (Primary Dx); Bronchitis, not specified as acute or chronic Social History Tobacco Use Types Packs/Day Years Used Date Smoking Tobacco: Never Assessed Comments Unknown Sex and Gender Information Value Date Recorded Sex Assigned at Not on file Legal Sex Female 2:36 AM 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
--- OUTSIDE RECORDS SUMMARY | 2025-08-14 00:37 | XMS_ITS | Encounter Summary ---
Author Organization [facility] Address [address] [place] [address] Care Team Providers Care Pool Table Mechanic Name Role Phone Unavailable Primary Care Provider Unavailabl e Encounter Details Date Type Department Care Team (Latest Contact Info) Description 12/19/1999 Outpatient Historical [facility] Medicine- [address] [phone] Eugene Giordano MD [address] [address] Acute upper respiratory infections of unspecified site (Primary Dx) Social History Tobacco Use Types Packs/Day Years Used Date Smoking Tobacco: Never Assessed Comments Unknown Sex and Gender Information Value Date Recorded Sex Assigned at Not on file Legal Sex Female 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
--- OUTSIDE RECORDS SUMMARY | 2025-08-14 00:37 | XMS_ITS | Encounter Summary ---
Author Organization [facility] Address [address] [place] [address] Care Team Providers Care Veneer Sander Name Role Phone Unavailable Primary Care Provider Unavailabl e Encounter Details Date Type Department Care Team (Latest Contact Info) Description 11/25/2002 Outpatient Historical [facility] Medicine- [address] [phone] Laura Trejo [address] [place] [address] MIGRAINE NOS W/O MENTN INTRACTABLE (Primary Dx) Social History Tobacco Use Types Packs/Day Years Used Date Smoking Tobacco: Never Assessed Comments Unknown Sex and Gender Information Value Date Recorded Sex Assigned at Not on file Legal 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
--- OUTSIDE RECORDS SUMMARY | 2025-08-14 00:37 | XMS_ITS | Encounter Summary ---
Author Organization [facility] Address [address] [place] [address] Care Team Providers Care Assistant Produce Manager Name Role Phone Unavailable Primary Care Provider Unavailabl e Encounter Details Date Type Department Care Team (Latest Contact Info) Description 06/15/2003 Outpatient Historical [facility] Medicine- [address] [phone] Eugene Giordano MD [address] [address] Sprain of neck (Primary Dx); SPRAIN SHOULDER/ARM NOS Social History Tobacco Use Types Packs/Day Years Used Date Smoking Tobacco: Never Assessed Comments Unknown Sex and Gender Information Value Date Recorded Sex Assigned at Not on file Legal Sex Female 2:36 AM MALTER OPERATOR Gender Identity Not on file Sexual Orientation Not on file documented as of this encounter Plan of Treatment Not on file documented as of this encounter Visit Diagnoses Diagnosis Sprain of neck- Primary Neck sprain and strain Sprain and strain of unspecified site of shoulder and upper arm documented in this encounter
--- OUTSIDE RECORDS SUMMARY | 2025-08-14 00:37 | XMS_ITS | Encounter Summary ---
Author Organization [facility] Address [address] [place] [address] Care Team Providers Care Irrigation Equipment Installer Name Role Phone Unavailable Primary Care Provider Unavailabl e Encounter Details Date Type Department Care Team (Latest Contact Info) Description 03/23/2003 Outpatient Historical [facility] Medicine-[place] [address] [place] [phone] Luís Carey MD NO ADDRESS ON FILE ACUTE URI NOS (Primary Dx) Social History Tobacco Use Types Packs/Day Years Used Date Smoking Tobacco: Never Assessed Comments Unknown Sex and Gender Information Value Date Recorded Sex Assigned at Not on file Legal Sex Female 2:36 AM EPIC PRELUDE ANALYST Gender Identity Not on file Sexual Orientation Not on file documented as of this encounter Plan of Treatment Not on file documented as of this encounter Visit Diagnoses Diagnosis Acute upper respiratory infections of unspecified site- Primary documented in this encounter
--- OUTSIDE RECORDS SUMMARY | 2025-08-14 00:37 | XMS_ITS | Clinical Summary ---
Author Organization [facility] Address [address] [place] [address] Phone Care Team Providers Care Clinical Data Analyst Name Role Phone Unavailable Primary Care Provider Unavailabl e Allergies Active Allergy Reactions Criticality Noted Date Comments Erythromycin Nausea and Vomiting Low 10/08/2011 Topiramate Other (See Comments) 10/08/2011 Thought process slowed Medications ASPIRIN/ACETAMIN OPHEN/CAFFEINE (EXCEDRIN MIGRAINE ORAL) Take by mouth. Active METAXALONE (SKELAXIN ORAL) Take by mouth. Active Ibuprofen, Bulk, 100 % Misc Powd by Misc.(Non-D rug; Combo Route) route. Active clomiPHENE citrate (CLOMID) 50 mg Oral tablet Take 1 Tab by mouth daily. 5 Tab 2 12/31/2011 Active Active Problems No known active problems Immunizations Immunization Administration Dates Next Due Hepatitis B Vaccine 01/28/2003,08/20/2002,2001 Family History Medical History Relation Name Comments Cancer Maternal Grandmother Cancer Mother Hypertension Mother Thyroid Disease Mother Cancer Sister Relation Name Status Comments Maternal Grandmother Mother Sister Social History Tobacco Use Types Packs/Day Years Used Date Smoking Tobacco: Never Alcohol Use Standard Drinks/Week Comments Yes 0 (1 standard drink = 0.6 oz pur e alcohol) occ Comments Unknown Sex and Gender Information Value Date Recorded Sex Assigned at Not on file Legal Sex Female 2:33 AM COPY OPERATOR Gender Identity Not on file Sexual Orientation Not on file Occupation Industry Job Start Date Job End Date Not on file Not on file Not on file Not on file Last Filed Vital Signs Vital Sign Reading Time Taken Comments Blood Pressure 106/78 10/08/2011 3:34 PM COPY OPERATOR Pulse - - Temperature - - Respiratory Rate - - Oxygen Saturation - - Inhaled Oxygen Concentration - - Weight 101.6 kg (224 lb) 10/08/2011 3:34 PM COPY OPERATOR Height 165.1 cm (5' 5 ) 10/08/2011 3:34 PM COPY OPERATOR Body Mass Index 37.28 10/08/2011 3:34 PM COPY OPERATOR Plan of Treatment Health Maintenance Due Date Last Done Comments DTAP/TDAP/TD VACCINES (1 - Tdap) 1997 HEPATITIS B VACCINES (1 of 3 - 19+ 3-dose series) 1997 01/28/2003, 08/20/2002, 07/02/2002 HPV/Cotest (21-29) 1999 HPV/Cotest (30-65) 2008 CERVICAL CANCER SCREENING 10/08/2014 PAP SMEAR 10/08/2014 10/08/2011 BREAST CANCER SCREENING 2018 COLORECTAL SCREENING 2023 Colorectal Cancer Screening 2023 FIT-DNA Q 3 years 2023 FIT/FOBT Q 1 year 2023 Flex Sig/CT Colonography Q 5 years 2023 INFLUENZA VACCINE (#1) 2025 HPV VACCINES Aged Out No longer eligi ble based on patient's age to complete this topic Procedures Procedure Name Priority Date/Time Associated Diagnosis Comments CERV/VAG CYTOPATH, THIN PREP TAKER AWAY AND HPV Routine 10/08/2011 Routine gynecological examination from Last 3 Months or Most Recently Relevant to Health Maintenance Results * CERV/VAG CYTOPATH, THIN PREP TAKER AWAY AND HPV (10/08/2011) PAP INTERP NON [facility] CYTOLOGY INFECTION NON [facility] Activated Sludge Attendant Pap Comment NON [facility] PAP COMMENT 2 NON [facility] PAP COMMENT 3 NON [facility] ADEQUACY: NON [facility] CLINICAL INFORMATION NON [facility] SOURCE NON [facility] PREV PAP: NON [facility] GENERAL CATEGORIZATION: NON [facility] PATHOLOGIST NON [facility] RADIO ANTENNA INSTALLER: NON [facility] REVIEW RADIO ANTENNA INSTALLER: NON [facility] LAST MENSTRUAL PERIOD NON [facility] PREV BX: NON [facility] REPORT STATUS NON [facility] REPORT STATUS (ALT) NON [facility] HPV HIGH RISK DNA DETECTION NON [facility] CHLAMYDIA TRACHOMATIS DNA NON [facility] GC DNA AMPLIFICATION NON [facility] HPV INTERMEDIATE/HIGH RISK NON [facility] HPV LOW RISK NON [facility] HPV INTERP NON [facility] FINAL REPORT NON [facility] Endocervical 10/08/2011 us Cristal Bailey MD PATHOLOGY/CYTOLOGY ORDERABLES F inal Result NON [facility] from Last 3 Months or Most Recently Relevant to Health Maintenance Insurance [facility] BLUE ACCESS/TRUE BLUE PPO
--- OUTSIDE RECORDS SUMMARY | 2025-08-14 00:37 | XMS_ITS | Encounter Summary ---
Author Organization [facility] Address [address] [place] [address] Care Team Providers Care Family Services Worker Name Role Phone Unavailable Primary Care Provider Unavailabl e Encounter Details Date Type Department Care Team (Latest Contact Info) Description 10/02/1999 Outpatient Historical [facility] Oneal Lewis MD [address] [place] [phone] Acute tonsillitis (Primary Dx) Social History Tobacco Use Types Packs/Day Years Used Date Smoking Tobacco: Never Assessed Comments Unknown Sex and Gender Information Value Date Recorded Sex Assigned at Not on file Legal Sex Female 2:36 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
--- OUTSIDE RECORDS SUMMARY | 2025-08-14 00:37 | XMS_ITS | Encounter Summary ---
Author Organization [facility] Address [address] [place] [address] Care Team Providers Care Weed Thinner Name Role Phone Unavailable Primary Care Provider Unavailabl e Encounter Details Date Type Department Care Team (Latest Contact Info) Description 07/30/2001 Outpatient Historical [facility] Medicine- [address] [phone] Eugene Giordano MD [address] [phone] OTITIS MEDIA NOS (Primary Dx); ACUTE URI NOS; ACUTE PHARYNGITIS Social History Tobacco Use Types Packs/Day Years Used Date Smoking Tobacco: Never Assessed Comments Unknown Sex and Gender Information Value Date Recorded Sex Assigned at Not on file Legal Sex Female 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
--- OUTSIDE RECORDS SUMMARY | 2025-08-14 00:37 | XMS_ITS | Encounter Summary ---
Author Organization [facility] Address [address] [place] [address] Care Team Providers Care Adjunct Professor Of [place] History Name Role Phone Unavailable Primary Care Provider Unavailabl e Encounter Details Date Type Department Care Team (Latest Contact Info) Description 05/21/2002 Outpatient Historical [facility] [address] [phone] Gloria Sifuentes MD NO ADDRESS ON FILE LUMP OR MASS IN BREAST (Primary Dx) Social History Tobacco Use Types Packs/Day Years Used Date Smoking Tobacco: Never Assessed Comments Unknown Sex and Gender Information Value Date Recorded Sex Assigned at Not on file Legal Sex Female 2:36 AM HORSEBACK EXCAVATOR Gender Identity Not on file Sexual Orientation Not on file documented as of this encounter Plan of Treatment Not on file documented as of this encounter Visit Diagnoses Diagnosis Lump or mass in breast- Primary documented in this encounter
--- OUTSIDE RECORDS SUMMARY | 2025-08-14 00:37 | XMS_ITS | Encounter Summary ---
Author Organization [facility] Address [address] [place] [address] Care Team Providers Care Outside Energy Sales Representatives Name Role Phone Unavailable Primary Care Provider Unavailabl e Encounter Details Date Type Department Care Team (Latest Contact Info) Description 09/10/1999 Outpatient Historical [facility] Gasper Zee NO ADDRESS ON FILE Acute pharyngitis (Primary Dx) Social History Tobacco Use Types Packs/Day Years Used Date Smoking Tobacco: Never Assessed Comments Unknown Sex and Gender Information Value Date Recorded Sex Assigned at Not on file Legal Sex Female 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
--- OUTSIDE RECORDS SUMMARY | 2025-08-14 00:37 | XMS_ITS | Encounter Summary ---
Author Organization [facility] Address [address] [place] [address] Care Team Providers Care Drafter Mechanical Name Role Phone Unavailable Primary Care Provider Unavailabl e Encounter Details Date Type Department Care Team (Latest Contact Info) Description 05/04/2002 Outpatient Historical [facility] Medicine- [address] [phone] Eugene Giordano MD [address] [address] ACUTE PHARYNGITIS (Primary Dx); LUMP OR MASS IN BREAST Social History Tobacco Use Types Packs/Day Years Used Date Smoking Tobacco: Never Assessed Comments Unknown Sex and Gender Information Value Date Recorded Sex Assigned at Not on file Legal Sex Female 2:36 AM PROGRAM PRODUCTION SPECIALIST Gender Identity Not on file Sexual Orientation Not on file documented as of this encounter Plan of Treatment Not on file documented as of this encounter Visit Diagnoses Diagnosis Acute pharyngitis- Primary Lump or mass in breast documented in this encounter
--- OUTSIDE RECORDS SUMMARY | 2025-08-14 00:37 | XMS_ITS | Encounter Summary ---
Author Organization [facility] Address [address] [place]: [place] [address] Care Team Providers Care Lead Teller Name Role Phone Unavailable Primary Care Provider Unavailabl e Encounter Details Date Type Department Care Team ([facility] Contact Info) Description 05/21/2002 Outpatient Historical Eugene Giordano MD [address] [phone] Social History Tobacco Use Types Packs/Day Years Used Date Smoking Tobacco: Never Assessed Comments Unknown Sex and Gender Information Value Date Recorded Sex Assigned at Not on file Legal Sex Female 2:36 AM DIAL REFINISHER Gender Identity Not on file Sexual Orientation Not on file documented as of this encounter Plan of Treatment Not on file documented as of this encounter Visit Diagnoses Not on filedocumented in this encounter
--- OUTSIDE RECORDS SUMMARY | 2025-08-14 00:37 | XMS_ITS | Encounter Summary ---
Author Organization [facility] Address [address] [place] [address] Care Team Providers Care Brand Planner Name Role Phone Unavailable Primary Care Provider Unavailabl e Encounter Details Date Type Department Care Team (Latest Contact Info) Description 11/20/2001 Outpatient Historical [facility] Oneal Lewis MD [address] [place] [phone] ACUTE TONSILLITIS (Primary Dx) Social History Tobacco Use Types Packs/Day Years Used Date Smoking Tobacco: Never Assessed Comments Unknown Sex and Gender Information Value Date Recorded Sex Assigned at Not on file Legal Sex Female 2:36 AM ANIMAL TRAPPER Gender Identity Not on file Sexual Orientation Not on file documented as of this encounter Plan of Treatment Not on file documented as of this encounter Visit Diagnoses Diagnosis Acute tonsillitis- Primary documented in this encounter
--- OUTSIDE RECORDS SUMMARY | 2025-08-14 00:37 | XMS_ITS | Encounter Summary ---
Author Organization [facility] Address [address] [place] [address] Care Team Providers Care Sausage Wrapper Name Role Phone Unavailable Primary Care Provider Unavailabl e Encounter Details Date Type Department Care Team (Latest Contact Info) Description 08/01/1998 Outpatient Historical [facility] Gasper Zee NO ADDRESS ON FILE Acute pharyngitis (Primary Dx) Social History Tobacco Use Types Packs/Day Years Used Date Smoking Tobacco: Never Assessed Comments Unknown Sex and Gender Information Value Date Recorded Sex Assigned at Not on file Legal Sex Female 2:36 AM ELECTRONEURODIAGNOSTIC TECHNOLOGIST Gender Identity Not on file Sexual Orientation Not on file documented as of this encounter Plan of Treatment Not on file documented as of this encounter Visit Diagnoses Diagnosis Acute pharyngitis- Primary documented in this encounter
--- OUTSIDE RECORDS SUMMARY | 2025-08-14 00:37 | XMS_ITS | Encounter Summary ---
Author Organization [facility] Address [address] [place] [address] Care Team Providers Care Coordinator Of Rehabilitation Services Name Role Phone Unavailable Primary Care Provider Unavailabl e Encounter Details Date Type Department Care Team (Latest Contact Info) Description 11/30/2001 Outpatient Historical [facility] Medicine- [address] [phone] Eugene Giordano MD [address] [phone] DIARRHEA NOS (Primary Dx); FEVER Social History Tobacco Use Types Packs/Day Years Used Date Smoking Tobacco: Never Assessed Comments Unknown Sex and Gender Information Value Date Recorded Sex Assigned at Not on file Legal Sex Female 2:36 AM WALLPAPER CLEANER Gender Identity Not on file Sexual Orientation Not on file documented as of this encounter Plan of Treatment Not on file documented as of this encounter Visit Diagnoses Diagnosis Diarrhea- Primary Fever and other physiologic disturbances of temperature regulation documented in this encounter
--- OUTSIDE RECORDS SUMMARY | 2025-08-14 00:37 | XMS_ITS | Encounter Summary ---
Author Organization [facility] Address [address] [place] [address] Care Team Providers Care Elementary Science Teacher Name Role Phone Unavailable Primary Care Provider Unavailabl e Encounter Details Date Type Department Care Team (Latest Contact Info) Description 09/17/2001 Outpatient Historical [facility] Medicine- [address] [phone] Eugene Giordano MD [address] [phone] ACUTE TONSILLITIS (Primary Dx); COUGH; ALLERGIC RHINITIS NOS Social History Tobacco Use Types Packs/Day Years Used Date Smoking Tobacco: Never Assessed Comments Unknown Sex and Gender Information Value Date Recorded Sex Assigned at Not on file Legal Sex Female 2:36 AM TECHNICAL SUPERVISOR Gender Identity Not on file Sexual Orientation Not on file documented as of this encounter Plan of Treatment Not on file documented as of this encounter Visit Diagnoses Diagnosis Acute tonsillitis- Primary Cough Allergic rhinitis, cause unspecified documented in this encounter
--- OUTSIDE RECORDS SUMMARY | 2025-08-14 00:37 | XMS_ITS | Data Portability ---
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 Plan of Treatment Reminders Order Date Submit Date Provider Last Modified By Organization Details Last Modified Time Details Appointments None recorded. Lab urinalysis, complete 2024 025 [email or web address] 40 [facility], [address] [facility], [facility] [address], [address], 5 08:14:38 culture, urine 2024 025 [email or web address] 40 [facility], [address] [place] [address], [address], [place], [address], 5 08:14:38 iron + TIBC + ferritin, serum 2024 025 [email or web address] 40 [facility], [address] [place] [address], [address], [place], [address], 5 08:14:38 Referral None recorded. Procedures colonoscopy screening (PROC) 2024 025 [email or web address] 2 Not available 13:30:59 Surgeries None recorded. Imaging MAMMO, screening, digital, bilateral 2024 025 [email or web address] 4 [facility] Imaging Orders, [address] [facility] [place], [address], 5 17:37:05 Medication Orders prednisone 20 mg tablet 2023 025 [facility] #93315, [address], [place], [place], [id number], 5 15:01:59 amoxicillin 875 mg-potassiu m clavulanate 125 mg tablet 2023 025 [facility] #74410, [address], [place], [place], [id number], 5 14:59:02 Medrol (Kiko) 4 mg tablets in a dose pack 2023 [facility]20241, [address], [place], [place], [id number], 4 11:53:18 baclofen 5 mg tablet 2023 024 [email or web address] 40 [facility] #17900, [address], [place], [place], [id number], 5 15:39:07 Savella 100 mg tablet 2023 024 [facility] #03184, [address], [place], [place], [id number], 4 13:03:33 fluticasone propionate 50 mcg/actuati on nasal spray,suspe nsion 2023 024 [facility] #36150, [address] [place], [place], [id number], 4 09:31:47 Patient TargetsNo targets recorded. Patient InstructionsNo instructions recorded. Reason for Referral None Reported. Results Created Date Observation Date Name Description Value Unit Range Abnormal Flag Note LastModifiedBy Organization Detail LastModifiedTime Result Notes None recorded. Problems Name Problem SNOMED Code Status Onset Date Resolution Date Notes Provider Name and Address Organization Details Recorded Time Arthritis 9815973 Active 2021 Arthritis; 07/08/2022 8:45AM by Jojo Ferraro RN, Office Visit; Promoted; acuity set as *; [facility] 3 15:27:55 Migraine 12347034 Active 2021 Migraine Headache; 07/08/2022 8:45AM by Jojo Ferraro RN, Office Visit; Promoted; acuity set as *; [facility] 3 15:28:06 Iron deficiency anemia 24816860 Active 2022 [facility] 3 15:28:02 Essential hypertensi on 80913862 Active 2022 [facility] 3 15:27:58 Fibromyalg ia 056477542 Active 2022 [facility] 3 15:27:48 Hyperglyce di 87083689 Active 2023 YENNY MAIER [facility] 4 08:38:51 Problem Notes None recorded. Procedures Surgical History Date Name Laterality Status Provider Name and Address Organization Details Recorded Time 05/16/20 20 Date of Last Pap Smear completed [facility] 08/18/2023 15:29:49 Appendectomy completed [facility] 08/18/2023 15:34:28 tonsilectomy/can noids completed [facility] 08/18/2023 15:35:20 Imaging Results None recorded. Procedure Notes None recorded. Medical Equipment None Reported. Allergies Allergen ID Allergen Name Allergen Category Reaction Reaction Severity Criticality Documentation Date Start Date Code Code System Note Provider Name and Address Organization Details Recorded Time 18426 erythromy kayden medicatio n vomiting Not available Not available 04/12/2023 4053 RxNorm React ion: Vomit ing; Comme nt: Recor ded 07/08 8:45A M by Adali washburn RN, Offic e Visit ; Promo alesia; Signi fican ce: *; ; Not Available [facility] 3 02:25:23 42008 Imitrex medicatio n Not available Not available Not available 04/12/2023 07667 3 RxNorm Comme nt: Recor ded 07/08 8:45A M by Adali washburn RN, Offic e Visit ; Promo alesia; Signi fican ce: *; Reaso n: Drug aller gy; ; Not Available [facility] 3 02:25:24 88249 Topamax medicatio n Not available Not available Not available 04/12/2023 99283 3 RxNorm Comme nt: Recor ded 07/08 8:45A M by Adali washburn RN, Offic e Visit ; Promo alesia; Signi fican ce: *; ; Not Available [facility] 3 02:25:24 27825 Bactrim medicatio n Not available Not available Not available 04/12/2023 18474 9 RxNorm Comme nt: Recor ded 07/08 8:45A M by Adali washburn RN, Offic e Visit ; Promo alesia; Signi fican ce: *; Reaso n: Drug aller gy; ; Not Available [facility] 3 02:25:24 21184 Substance with sulfonami de structure and antibacte rial mechanism of action (substanc e) medicatio n Not available Not available Not available 12/08/2024 85047 [address] [facility]. 5 14:58:39 Medications Name Sig Start Date Stop Date Status Note LastModified by Organization Details LastModified Time losartan 50 mg tablet qd 2024 active Not Available Not Available Not Avai lable promethaz ine-DM 6.25 mg-15 mg/5 mL oral syrup TAKE 5 ML BY MOUTH EVERY 6 HOURS NEEDED 08/18 completed Not Available Not Available Not Available prednison e 10 mg tablet TAKE 1 TABLET BY MOUTH DAILY FOR 3 TO 7 DAYS NEEDED FOR JOINT PAIN OR FLARE active Rhuem Not Available Not Available No t Available Flonase 50 mcg/DOSE nasal inhaler 10/17 completed 0; Recorded 07/08/20 22 8:45AM by Yaneth Ferraro, RN, Office Visit; Not Available Not Available Not Available prednison e 20 mg tablet TAKE 2 TABLETS BY MOUTH EVERY DAY IN THE MORNING FOR 7 DAYS 12/08 completed Not Available Not Available Not Available prednison e 5 mg tablet TAKE 4 TABLETS BY MOUTH FOR 3 DAYS THEN TAKE 3 TABLETS FOR 3 DAYS THEN TAKE 2 TABLETS FOR 3 DAYS AND THEN TAKE 1 TABLET FOR 3 DAYS 08/18 completed Not Available Not Available Not Available clobetaso l 0.05 % topical cream APPLY TOPICALL Y TO THE AFFECTED AREA TWICE DAILY FOR 2 WEEKS active Rhuem Not Available Not Available No t Available chlorthal idone 25 mg tablet TAKE 1 TABLET BY MOUTH EVERY DAY 07/14 completed Not Available Not Available Not Available leflunomi de 20 mg tablet TAKE 1 TABLET BY MOUTH DAILY active Rhuem Not Available Not Available No t Available Zofran 4 mg tablet three times daily, as needed 08/18 completed for nausea; Recorded 07/08/20 22 8:45AM by Yaneth Ferraro RN, Office Visit; Refill Quantity : 30; Tablet; Not Available Not Available Not Available baclofen 10 mg tablet TAKE 1 TABLET BY MOUTH TWICE DAILY NEEDED 12/10 completed Not Available Not Available Not Available losartan 25 mg tablet TAKE 1 TABLET BY MOUTH EVERY DAY 08/18 completed Not Available Not Available Not Available hydroxych loroquine 200 mg tablet TAKE 1 TABLET BY MOUTH TWICE DAILY. active Rhuem Not Available Not Available No t Available methylpre dnisolone 4 mg tablets in a dose pack FOLLOW PACKAGE DIRECTIO NS 06/28 completed Not Available Not Available Not Available ketorolac 60 mg/2 mL intramusc ular solution Inject 1 mL by intramus cular route. 08/18 completed Not Available Not Available Not Available fluticaso ne propionat e 50 mcg/actua tion nasal spray,[employer] SHAKE LIQUID AND USE 1 SPRAY IN EACH NOSTRIL TWICE DAILY FOR 14 DAYS active Not Available Not Available No t Available metformin ER 500 mg tablet,ex tended release 24 hr qd 2024 active Not Available Not Available Not Avai lable nortripty line 50 mg capsule TAKE 1 CAPSULE BY MOUTH EVERY DAY AT BEDTIME 2024 active Not Available Not Available Not Avai lable amoxicill in 875 mg-potass ium clavulana te 125 mg tablet TAKE 1 TABLET BY MOUTH TWICE DAILY FOR 10 DAYS 12/08 completed Not Available Not Available Not Available Skelaxin 800 mg tablet three times daily, as needed 08/18 completed Recorded 05/17/20 20 8:16AM by Liza Vasquez, Office Visit; Refill Quantity : 90; Tablet; Not Available Not Available Not Available duloxetin e 60 mg capsule,d elayed release TAKE 1 CAPSULE BY MOUTH DAILY active Whitlock, for fibromya lgia Not Available Not Available Not Available pregabali n 100 mg capsule TAKE 2 CAPSULES BY MOUTH TWICE DAILY 12/08 completed taken over by rheum Not Available Not Available Not Available pregabali n 200 mg capsule TAKE 1 CAPSULE BY MOUTH TWICE DAILY. active Rhuem Not Available Not Available No t Available magnesium 100mg qd active Not Available Not A vailable Not Available melatonin 07/14 completed 0; Recorded 07/08/20 22 8:45AM by Yaneth Ferraro RN, Office Visit; Not Available Not Available Not Available Vitamin C 12/08 completed 0; Recorded 07/08/20 22 8:45AM by Yaneth Ferraro RN, Office Visit; Not Available Not Available Not Available garlic active 0; Recorded 07/08/20 22 8:45AM by Yaneth Ferraro RN, Office Visit; Not Available Not Available Not Available prednisol one 06/28 completed Not Available Not Available Not Available meclizine three times daily 07/14 completed cs/smf; 42198; Recorded 07/08/20 22 8:45AM by Yaneth Ferraro RN (Authori kelin through Sarthak Summers DO), Office Visit; Refill Quantity : 0; Not Available Not Available Not Available baclofen two times daily, as needed 07/14 completed CS/sd; Recorded 07/08/20 22 8:45AM by Yaneth Ferraro RN, Office Visit; Refill Quantity : 60; Tablet; Not Available Not Available Not Available hydroxych loroquine 06/28 completed Not Available Not Available Not Available nortripty line at bedtime 07/14 completed for migraine preventi on cs/smf; 06823; Recorded 11/01/19 23 7:48AM by Guadalupe Fields (Authori zed through Herman Kunz MD), Refill Request; Refill Quantity : 30; Capsule; Not Available Not Available Not Available rizatript an as needed 08/18 completed for migraine ; Recorded 07/08/20 22 8:45AM by Yaneth Ferraro RN, Office Visit; Refill Quantity : 30; Tablet; Not Available Not Available Not Available Vitamin D3 every other day 12/08 completed 0; Recorded 07/08/20 22 8:45AM by Yaneth Ferraro RN, Office Visit; Not Available Not Available Not Available metformin daily 07/14 completed Recorded 07/08/20 22 9:02AM by Sarthak Summers DO, Office Visit; Refill Quantity : 90; Tablet; Not Available Not Available Not Available ProAir HFA 90 mcg/actua tion aerosol inhaler every 4-6 hours prn cough/wh eezing 08/18 completed Recorded 05/10/20 21 8:58AM by Reba Cardozo, Office Visit; Refill Quantity : 0; Not Available Not Available Not Available Excedrin Extra Strength daily for migraine s active Not Available Not Available No t Available Symbicort 80 mcg-4.5 mcg/actua tion HFA aerosol inhaler two times daily 08/[address] Sharma *dose decrease , did not send to pharmacy *; 05803; Recorded 01/10/20 22 8:14AM by Reba Cardozo (Authori kelin through Sarthak Summers DO), Office Visit; Refill Quantity : 0; Not Available Not Available Not Available FeroSul 325 mg (65 mg iron) tablet TAKE 1 TABLET BY MOUTH 3 TIMES A WEEK 10/17 completed Not Available Not Available Not Available Savella 25 mg tablet 12/10 completed Not Available Not Available Not Available Savella 100 mg tablet TAKE ONE TABLET BY MOUTH TWICE DAILY 06/28 completed Not Available Not Available Not Available Savella 50 mg tablet TAKE 2 TABLETS BY MOUTH TWICE DAILY 12/10 completed Not Available Not Available Not Available Savella 12.5 mg (5)-25 mg(8)-50m g(42) tablets in a dose pack as directed 10/17 completed Not Available Not Available Not Available melatonin 5 mg chewable tablet Take by oral route. active Not Available Not Available No t Available baclofen 5 mg tablet TAKE 1 TABLET BY MOUTH TWICE DAILY 12/08 completed Whitlock Not Available Not Available Not Available albuterol 90 mcg-budes onide 80 mcg/actua tion HFA aerosol inhaler Inhale by inhalati on route. active Not Available Not Available No t Available Vitals Date Recorded Body height Body mass index (BMI) Body weight Oxygen saturation Heart rate Respiratory rate Body temperature Systolic And Diastolic Provider Name and Address Organization Details Last Updated DateTime 4 165.1 cm 36.9 kg/m2 608034. 51 g 98 % 98 /min 20 /min 98.7 [degF] 130/90 mm[Hg] IVAN BALES [facility] 4 09:10:44 Date Recorded Body height Body mass index (BMI) Body weight Body temperature Oxygen saturation Heart rate Systolic And Diastolic Provider Name and Address Organization Details Last Updated DateTime 5 165.1 cm 36.9 kg/m2 999233. 51 g 97.7 [degF] 97 % 109 /min 115/70 mm[Hg] YENNY FRED MAIER [facility] 5 14:58:02 Date Recorded Body height Body mass index (BMI) Body weight Body temperature Oxygen saturation Heart rate Systolic And Diastolic Provider Name and Address Organization Details Last Updated DateTime 4 165.1 cm 37.4 kg/m2 843130. 28 g 97.1 [degF] 99 % 114 /min 118/80 mm[Hg] YENNY MAIER [facility] 4 11:45:52 Date Recorded Body height Body mass index (BMI) Body weight Oxygen saturation Heart rate Respiratory rate Body temperature Systolic And Diastolic Provider Name and Address Organization Details Last Updated DateTime 4 165.1 cm 37.3 kg/m2 613986. 69 g 96 % 128 /min 20 /min 98.6 [degF] 138/74 mm[Hg] Nabila Kevinausten [facility] 4 10:05:16 Date Recorded Body height Body mass index (BMI) Body weight Oxygen saturation Heart rate Respiratory rate Body temperature Systolic And Diastolic Provider Name and Address Organization Details Last Updated DateTime 4 165.1 cm 37.9 kg/m2 655615. 06 g 99 % 84 /min 18 /min 98.5 [degF] 144/86 mm[Hg] Nabila Brownausten [facility] 4 11:56:09 Social History Question Answer Notes LastModified by Organizat ion Details LastModified Time Tobacco Smoking Status Never Smoker JOJO LURDES lee [facility] 02/26/2023 09:38:44 Are You Blind Or Do You Have Difficulty Seeing? No [email or web address] Information not available 02/26/2023 Are You Deaf Or Do You Have Serious Difficulty Hearing? No [email or web address] Information not available 02/26/2023 Have You Had Direct Contact, Or Contact During Intimacy, With Monkeypox Rash, Scabs, Or Body Fluids From A Person With Monkeypox? No [email or web address] Information not available 02/26/2023 Have You Recently Traveled Abroad? No [email or web address] Information not available 02/26/2023 Do You Have Difficulty Walking Or Climbing Stairs? No [email or web address] Information not available 02/26/2023 Sex: Unknown Functional Status Question Answer Note LastModified by Organizat ion Details LastModified Time Do you use any illicit or recreational drugs? No [email or web address] Information not available 08/18/2023 What is your level of alcohol consumption? Occasional [email or web address] Information not available 08/18/2023 Are you able to walk independently without assistance or assistive devices? YESWOREST [email or web address] Information not available 02/26/2023 Do you have difficulty doing errands alone? No [email or web address] Information not available 02/26/2023 Are you able to care for yourself independently? Yes [email or web address] Information not available 02/26/2023 Do you have difficulty dressing, bathing, grooming, or toileting? No [email or web address] Information not available 02/26/2023 Mental Status Question Answer Note LastModified by Organization D etails LastModified Time Do you have difficulty concentrating, remembering or making decisions? No [email or web address] Information no t available 02/26/2023 Family History Relationship Description Onset Age of this Age Resolved Age Notes LastModified by Organization Details LastModified Time Mother Hypertensive disorder [email or web address] Not available 2022 15:33:34 Mother Malignant neoplasm of lung [email or web address] Not available 12/2023 10:40:03 Maternal Grandmother Migraine [email or web address] Not available 12/2022 15:34:13 Medical History Condition Response Coronary Artery Disease N Other N Gout N Kidney Stones N Blood Diseases N Hyperthyroidism N Breast Cancer N Blood Transfusion N Depression N Hypothyroidism N Lung Disease N COPD N Defects or Inherited Disease N Developmental or Behavioral Disorders N Breast Problem N Difficulty Swallowing N Anesthesia Complications N Meniere's disease N Anxiety Disorder N Muscle, Joint, or Bone Problems Y Vision or Eye Problems N Arthritis N Polyps N Infertility N Cancer N Varicosities N Stroke N Endometriosis N Bladder or Kidney Problems N High Cholesterol N Liver Disease N Fibromyalgia Y Headaches Y Kidney Disease N Allergies/Hayfever N Heart Problems N Ear or Hearing Problems N Hospitalizations N Thyroid Problems N GI Problems N ADD/ADHD N Skin Problems N Eating Disorder N Anemia N Constipation N Mental Illness N Ovarian Cancer N Diabetes N Bedwetting N Seizures/Epilepsy N Tuberculosis N Eczema N Diverticulitis N Abuse/Domestic Violence N Asthma N Reflux/GERD N Hepatitis N Heart Disease N Pulmonary Embolism N Pre-Eclampsia N Hypertension Y Chronic Ear Infections N Osteoporosis N Chicken Pox N Autism Spectrum Disorder (ASD) N Thrombophilias N Gynecological History Statement/Question Response Abnormal Pap N Date of Last Pap Smear 05/16/2020 Obstetrics History GPAL:G 1 P 0 0 1 0 Type Value Spontaneous 1 Living 0 Total 1 Immunizations Vaccine Type Date Status Note Provider Nam e and Address Organization Details Recorded Time Influenza, split virus, trivalent, preservative 6 completed Not Available [facility] 09/18/2023 10:23:50 COVID-19, mRNA, LNP-S, PF, 100 mcg/0.5mL dose or 50 mcg/0.25mL dose 1 completed TAMATHA GREEN null, [facility] 07/26/2023 15:06:44 COVID-19, mRNA, LNP-S, PF, 100 mcg/0.5mL dose or 50 mcg/0.25mL dose 1 completed TAMATHA GREEN [facility] 07/26/2023 15:06:44 Hep B, adult 3 completed TAMATHA GREEN [facility] 07/26/2023 15:06:44 Hep B, adult 2 completed TAMATHA GREEN [facility] 07/26/2023 15:06:44 Hep B, adult 2 completed TAMATHA GREEN [facility] 07/26/2023 15:06:44 Past Encounters Encounter ID Performer Location Encounter Start Date Encounter Closed Date Diagnosis/Indication Diagnosis SNOMED-CT Code Diagnosis ICD10 Code Diagnosis IMO Codes Diagnosis Note [id number] Sarthak Summers DO [facility] [address] [place] [address] 02/26/2023 09:31:16 02/26/2023 20:43:46 Iron deficiency anemia 80421702 D50.0 Hyperglycemia 37607195 R 73.9 [id number] Sarthak Summers DO [facility] ([facility]) [address] [place] [id number] 05/26/2023 10:22:12 05/27/2023 17:31:33 Essential hypertension 01778918 I10 Iron defic iency anemia 70902473 D50.0 [id number] Sarthak Summers DO [facility] [address] [place] [id number] 5 07/14/2023 09:00:06 07/14/2023 13:42:06 Essential hypertension 07383065 I10 Pain of mu ltiple joints 61049326 M25.50 [id number] GABE WELLS [facility] [address] [place] [id number] 5 07/26/2023 14:50:43 07/26/2023 16:25:27 Pain in left lower limb 218546343 M79.559 [id number] Silvia Whitlock MD [facility] [address] [place] [id number] 08/18/2023 15:13:52 08/25/2023 11:58:55 Essential hypertension 65997282 I10 controlled Chronic da heather headache 1531381914 30974 R51.9 has tried everything , even botox, she is done with Neurologis ts. Migraine 49502478 G43.90 9 twice a week at least. Asthma 976093399 J45.90 [address] Fish. She know she needs to get in with Dr. Waldropr Fibromyalgia 594109275 M 79.7 by history Pain of le ft elbow joint 2392031323 3045345 M25.522 stretching , heat, ice, time Impaired f asting glycemia 851741828 R73.01 pt states pre-dm. pt states not dm. [id number] Herman Kunz MD [facility] [address] [place] [id number] 5 09/11/2023 18:28:49 09/15/2023 19:24:12 Upper respiratory infection 78732519 J06.9 [id number] Silvia Whitlock MD [facility] [address] [place] [id number] 5 09/18/2023 10:22:27 09/18/2023 11:34:13 Fibromyalgia 562401818 M79.7 We will start Savella today. will need maint refill in 1 month. f/u in 2 months. Type 2 santiago betes mellitus 99683568 E11.9 offical NEW dx today. (prior was pre-dm) but fasting gluc and A1C are in diabetic range even ON metformin. pt is dealing with other health issues and lif stressors, since her A1C is 6.9 we will table talks on dm for the near future. 09/18/23 Viral syndrome 830138769 B34.9 I advised she stay away from her mother until she is feeling better and symptoms improve or resolve. [id number] GABE KAUR [facility] [address] [place] [id number] 5 10/17/2023 09:00:01 10/17/2023 10:06:06 Acute pansinusitis 8925088 J01.40 Discussed viral process currently. Pt to use OTC coricidin due to her HTN and also the fluticason e nasal spray prescribed today. Discussed quarantini ng from her mother until symptoms resolve.Re turn if you develop fever, worsening ear pain, new symptoms develop or concerns arise. [id number] Silvia Whitlock MD [facility] [address] [place] [id number] 5 12/11/2023 11:41:02 12/11/2023 12:21:46 Fibromyalgia 522810899 M79.7 end of next month has rheum appointmen t. had tried gabapentin in the past - increased a few times and it didnt seem to be helping, then increased the cymbalta but not sure that helped.... savella not doing much.will have pt f/u with rheum for this. [id number] GABE KAUR [facility] [address] [place] [id number] 5 02/03/2024 09:52:08 02/03/2024 10:31:24 Acute back pain with sciatica 971343939 M54.42 Discussed to take 400mg ibuprofen twice a day for next 5 days with food.Hold the prednisone prescribed by Luis Daniel zuluaga while taking the medrol dose kiko.Apply a heating pad for 10 minutes every 2 hours while awake. Perform slow stretches 2 times a day.F/u with PCP in 4-5 days if symptoms persist or worsen. [id number] Josep Rubio DO [facility] [address] [place] [id number] 5 06/28/2024 11:36:59 06/28/2024 13:08:01 Acute maxillary sinusitis 02285656 J01.00 I counseled pt on diagnosis and treatment. we will start abx, steroids, pt to take OTC antihistam ine. return if not improving in 1-2 wks. [id number] Silvia Whitlock MD [facility] [address] [place] [id number] 5 12/08/2024 14:53:48 12/16/2024 16:48:33 Adult health examination 874420208 Z00.00 Screening colonoscopy 44 2831018 Z12.11 Screening mammography 24 203035 Z12.31 Liver enzy mes level above reference range 521801551 R74.01 pt brings labs from rheum. AST 35 (0-32) and ALT 39 (0-33). minimally elevated. suspect fatty liver. recheck in 6-12 months. 12/08/24 Anemia 010513124 D64.9 labs per rheum hg 10.2 (11.27-16. 99). We will check iron studies today. 12/08/2024 Fibromyalgia 611904962 M 79.7 wean off baclofen - pt should not be on since she is seeing rheum. Patient given written instructio ns on how to wean the baclofen. 12/08/2024 Pain in pelvis 15775610 R10.2 Health Concerns Section Related Observation LastModified by Organization Detai ls LastModified Time None Recorded Concern Status LastModified by Organization Details LastModified Time None Recorded Advance Directives Directive None Recorded Payers Insurance Date Sequence Insurance Name Policy Number Policy Collado Covered Member ID Collado Member ID Guarantor Name 12/16/2024 1 [facility] (O) [id number] Laura Raymundo [id number] Laura Raymundo 12/06/[address] [facility] (O) [id number] Laura Raymundo [id number] Laura Raymundo Notes Date Note Type Note Provider Name and Address Organization Details Recorded Time 4 text/html Sore ThroatReported by PatientHPIFor quality, patient reportsdull(scratchy). For location, patient reportsbilateral. For onset/timing, patient reportssudden. For duration, patient reportsstarted 1 day(s) ago. For context, patient reportsallergies. For associated symptoms, patient reportsno fever. EaracheReported by PatientHPIFor modifying factors, patient reportshurts to chew. For associated symptoms, patient reportsnose/sinus problems. For location, patient reportsleftandpain inside ear. For quality, patient reportsburning,aching,thr obbing, andsharp(shooting pain when i bite down). For severity, patient reportscontinuousandmoder ate. For duration, patient reportsstarted:(yesterday ). For timing, patient reportssudden.43 y/o female presents with left ear pain, mild sinus pressure, and scratchy throat that started yesterday. Has used a couple cough drops for her symptoms. Denies fever, hearing change, ear drainage. Is eating/drinking normally. 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 Wants to ensure she's safe to be around her mother.ROS as noted in the HPI left ear pain started yesterday , sinus drainage ,sore throat PAU DOAN, SEED LABORATORY ASSISTANT [address] [place], [address], [facility] L[facility]LMaddie 10/17/2023 09:32:00 4 text/html FibromyalgiaReported by PatientHPIFor associated symptoms, patient reportsfatigue,chronic headaches,morning stiffness,muscle spasms, andnumbness/tingling in the extremities. For quality, patient reportsconstant. For aggravating factors, patient reportsemotional stressandbright lights. For alleviating factors, patient reportsmuscle relaxers.ROS as noted in the HPI been on the 50 BID savella for a little over a month. it really has not done much.the edge of the overall pain is better....i guess.the muscle relaxers at least help enough sometimes to get some sleep... Silvia Whitlock MD [address] [place], [address], [facility] 12/17/2023 13:48:00 4 text/html Hip(s)Reported by PatientHPIFor associated symptoms, patient reportsradiation down leg. For location, patient reportsleft. For quality, patient reportsthrobbingandsharp. For severity, patient reportspain level 8/10. For work related, patient reportsno.ROS as noted in the HPI walk in patientpatient is here today for left hip pain, patient said that her left hip started hurting on Friday, patient normally see's her vice president biostatistics for her joint pain but they are not answering her portal messages.Patient has been taking Prednisolone 10mg, Hydroxychloroquine, and baclofen for her pain in her joints.started plaqenel 2 weeks ago. has f/u appt in 3 months with rheum. GABE KAUR [address] [place], [address], [facility] 02/04/2024 08:02:00 4 text/html Ear Pain Brief HPIReported by PatientROS as noted in the HPI walk in patientpatient is here today for sinus pressure, dizziness, low grade fever, bilateral ear pain, nausea and cough that started 2 weeks ago and is not getting any better, infact, a lot worse the last 2 days. no n/v/d. no CP or syncope. Josep Rubio DO [address] [place], [address], [facility] 06/28/2024 13:06:35 5 text/html Annual WellnessReported by PatientSocial/Behavioral HistoryFor additional lifestyle factors, patient reportsno tobacco use.Mental Status:For depression risk, patient reportssleep disturbances or insomnia.Functional AbilityFor vision, patient reportsno vision problems.ROS as noted in the HPI Patient brings some lab results with her that were done through rheumatology. She has had some lower pelvic cramping and expresses some concern for UTI. No burning with urination. Silvia Whitlock MD [address] [place] [address], [phone], [facility]L.CHaresh 12/16/2024 12:22:14 OBGyn Episode No OBEpisode recorded.
--- OUTSIDE RECORDS SUMMARY | 2025-08-14 00:37 | XMS_ITS | Encounter Summary ---
Author Organization [facility] Address [address] [place] [address] Care Team Providers Care Metrology Engineer Name Role Phone Unavailable Primary Care Provider Unavailabl e Encounter Details Date Type Department Care Team (Latest Contact Info) Description 07/06/2002 Outpatient Historical [facility] Medicine- [address] [phone] Eugene Giordano MD [address] [phone] CHRONIC RHINITIS (Primary Dx) Social History Tobacco Use Types Packs/Day Years Used Date Smoking Tobacco: Never Assessed Comments Unknown Sex and Gender Information Value Date Recorded Sex Assigned at Not on file 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
--- OUTSIDE RECORDS SUMMARY | 2025-08-14 00:37 | XMS_ITS | Encounter Summary ---
Author Organization [facility] Address [address] [place] [address] Care Team Providers Care Specialty Molder Name Role Phone Unavailable Primary Care Provider Unavailabl e Encounter Details Date Type Department Care Team (Latest Contact Info) Description 04/22/2000 Outpatient Historical [facility] Medicine- [address] [phone] Eugene Giordano MD [address] [phone] Acute tonsillitis (Primary Dx); Allergic rhinitis, cause unspecified Social History Tobacco Use Types Packs/Day Years Used Date Smoking Tobacco: Never Assessed Comments Unknown Sex and Gender Information Value Date Recorded Sex Assigned at Not on file 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
--- NOTE | 2025-08-14 00:38 | ECG_ITS ---
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 Measurements Intervals [place] Rate: 104 P: 30 MI: 120 QRS: -9 QRSD: 97 T: 14 QT: 357 QTc: 471 Interpretive Statements SINUS TACHYCARDIA LOW QRS VOLTAGE IN PRECORDIAL LEADS [QRS DEFLECTION < 1.0 mV IN CHEST LEADS] MINIMAL VOLTAGE CRITERIA FOR LVH, CONSIDER NORMAL VARIANT [MEETS CRITERIA IN ONE OF: R(aVL), S(V1), R(V5), R(V5/V6)+S(V1)] MILD ST DEPRESSION ABNORMAL RHYTHM ECG Compared to ECG 12/21/2015 22:19:35 Low QRS voltage now present Electronically Signed On 08-14-2025 11:41:36 BOX FINISHER by Obed Ryder M.D. [email or web address]
--- NOTE | 2025-08-14 00:40 | CTR_ITS ---
PROCEDURE INFORMATION: Exam: CT Head Without Contrast Exam date and time: 08/14/2025 12:41 AM Age: 44 years old Clinical indication: Pain; Weakness, extremity; Right; Headache; JORDAN with n/v. RT upper ext weakness; Additional info: Headache weakness TECHNIQUE: Imaging protocol: Computed tomography of the head without contrast. Radiation optimization: All CT scans at this facility use at least one of these dose optimization techniques: automated exposure control; mA and/or kV adjustment per patient size (includes targeted exams where dose is matched to clinical indication); or iterative reconstruction. COMPARISON: CT head wo con* [id number] 11/18/2018 4:17 PM RADIATION DOSE METRICS: Total DLP (mGy-cm): 1049.5 FINDINGS: Brain: Normal. No hemorrhage. Unremarkable white matter. No mass effect. Cerebral ventricles: No ventriculomegaly. Paranasal sinuses: Visualized sinuses are unremarkable. No fluid levels. Mastoid air cells: Visualized mastoid air cells are well aerated. Bones: Unremarkable. No acute fracture. Soft tissues: Unremarkable. CT/CT head wo con* [id number] IMPRESSION: No acute intracranial abnormality.
[2025-08-14 00:44] LABS: Hematocrit 31.8 % (36-47); Hemoglobin 10.10 g/dL (11.27-16.99); Mean Corpuscular HGB Conc 31.8 g/dL (30-55); Mean Corpuscular Hemoglobin 26.3 pg (27-33); Mean Corpuscular Volume 82.8 fl (85-98); Nucleated Red Blood Cells % 0 %; Platelet Count 445 10^3/cmm (157-399); Red Blood Count 3.84 10^6/uL (3.85-5.65); White Blood Count 9.69 10^3/uL (3.29-11.43)
[2025-08-14 01:01] LABS: INR 0.93 (0.8-1.2); Partial Thromboplastin Time 25.5 SECONDS (23.9-36.7); Prothrombin Time 13.20 SECONDS (12.1-14.9)
[2025-08-14 01:06] LABS: Alanine Aminotransferase 58 U/L (0-33); Albumin Level 4.4 g/dL (3.5-5.2); Alkaline Phosphatase 78 U/L (35-105); Anion Gap 17.7 (5-19); Aspartate Amino Transferase 88 U/L (0-32); Blood Urea Nitrogen 9 mg/dL (6-20); Calcium 9.1 mg/dL (8.5-10.5); Carbon Dioxide 24 mmol/L (22-29); Chloride 97 mmol/L (98-107); Globulin 2.9 g/dL (1.3-4.6); Glucose 128 mg/dL (65-115); Osmolality Calculated 280 mOsm/kg (285-295); Potassium 3.7 mmol/L (3.5-5.1); Sodium 135 mmol/L (136-145); Total Protein 7.3 g/dL (6.6-8.7)
[2025-08-14] MEDS: metoclopramide 5 mg/mL SDV 2 mL 10 MG IVP (01:08)
[2025-08-14] MEDS: fentaNYL 50 mcg/mL INJ 2mL 100 MCG IVP (01:09)
--- NOTE | 2025-08-14 01:59 | W.ED.HA ---
HPI - Headache General: Chief Complaint: Headache Stated Complaint: migraine dizzy, stroke symp Time Seen by Provider: 08/14/25 00:38 History of Present Illness: Patient is a 44-year-old female with a history of chronic headaches who presents with an acute exacerbation that began this morning upon waking. She describes the pain as severe and all around her head. The patient reports that she typically has daily headaches but states I don't ever not have a headache, though she indicates today's headache is significantly worse than her baseline. Associated symptoms include severe dizziness (which she reports has been ongoing for approximately two months), paresthesias in her hands and lips (though the lip tingling has improved), blurry vision, photophobia, and multiple episodes of vomiting (seven times). She also reports that her right arm feels super heavy. The patient attempted to self-medicate at home with Excedrin around 11:00 and Tramadol between 6:00-8:00 PM, but vomited shortly after taking the Excedrin and is unsure if it was absorbed. She reports difficulty with ambulation, describing her ability to walk as siddharth. Patient mentions having a previous CT scan when she was 10 years old, and another one within the last [address] Summers. Related Data Home Medications ?Medication ?Instructions ?Recorded ?Confirmed nortriptyline 10 mg capsule 10 mg PO DAILY 04/18/21 08/08/25 losartan 50 mg tablet 50 mg PO BID 01/12/24 08/08/25 magnesium glycinate 100 mg (as 100 mg PO DAILY 01/12/24 08/08/25 glycinate) tablet metformin 500 mg tablet 500 mg PO DAILY 01/12/24 08/08/25 Previous Rx's ?Medication ?Instructions ?Recorded albuterol sulfate 90 mcg/actuation 2 puff inhalation Q6H PRN 11/15/21 aerosol inhaler shortness of breath or wheezing 30 days #8.5 grams clobetasol 0.05 % topical cream 1 applic topical BID 2 weeks #60 12/01/24 grams prednisone 10 mg tablet See Rx Instructions PO .COMPLEX 12/01/24 PRN joint pain #30 tabs pregabalin 200 mg capsule (Lyrica) 200 mg PO BID #180 caps 03/23/25 Held on 08/08/25. Instructions: Doctor's Order cholecalciferol (vitamin D3) 1,250 50,000 unit PO Q7D 90 days #15 caps 03/24/25 mcg (50,000 unit) capsule tramadol 50 mg tablet 50 mg PO BID PRN pain (scale score 06/02/25 7-10) #60 tabs duloxetine 60 mg capsule,delayed 60 mg PO DAILY #90 caps 08/08/25 release folic acid 1 mg tablet 1 mg PO DAILY #90 tabs 08/08/25 hydroxychloroquine 200 mg tablet 200 mg PO BID #180 tabs 08/08/25 methotrexate sodium 2.5 mg tablet See Rx Instructions PO .Q7days #90 08/08/25 tabs prednisone 5 mg tablet 5 mg PO DAILY #90 tabs 08/08/25 Allergies Allergy/AdvReac Type Severity Reaction Status Date / Time Sulfa (Sulfonamide Allergy Severe ALGY-Hives Verified 03/23/25 12:00 Antibiotics) erythromycin base AdvReac Severe ADR-Vomitin Verified 03/23/25 12:00 g sumatriptan (From Imitrex) AdvReac Severe ADR-Confusi Verified 03/23/25 12:00 on topiramate (From Topamax) AdvReac Severe ADR-Confusi Verified 03/23/25 12:00 on [facility] PFS: Medical History (Updated 08/14/25 @ 16:04 by Anuj Borges DO) Seronegative rheumatoid arthritis of both hands Immunization counseling High risk medication use Inflammatory arthritis Fibromyalgia History of hypertension Joint pain Muscle pain Elevated high sensitivity C-reactive protein Elevated erythrocyte sedimentation rate Bronchitis Surgical History History of placement of ear tubes Family History Other CAD (coronary artery disease) Cancer Hypertension Denies family history of Diabetes Stroke Social History Smoking and tobacco/nicotine status: never used tobacco/nicotine Second hand smoke exposure: No Alcohol intake: current Alcohol intake frequency: holidays/special occasions only Substance/Drug Use: never Lives independently: Yes Household members: none Housing: House Marital status: Current occupational status: employed Current occupation: [employer] Current occupational exposures/hazards: No Pets and animals: Yes Pets & animals: dog(s) Do you think of yourself as: Straight/Heterosexual Current gender identity: Female Course Vital Signs: Vital signs: Vital Signs Temperature 99.5 F 08/14/25 02:47 Pulse Rate 106 H 08/14/25 03:25 Respiratory Rate 18 08/14/25 03:21 Blood Pressure 109/64 08/14/25 03:25 Pulse Oximetry 97 08/14/25 03:25 Oxygen Delivery Me thod Room Air 08/14/25 01:23 MDM - Headache Medical Decision Making Headache improved after migraine cocktail here, including Depacon, fentanyl, Toradol, dexamethasone, Reglan. Temperature is 99.6. Head CT is nonacute. CBC shows a stable hemoglobin of 10. Otherwise normal. BMP is not remarkable. Blood pressure is improved. She has no neck rigidity, or pain. Urinalysis is negative. She tested positive for COVID 19, likely the cause of her abnormal headache. CT head negative. With improvement, she is allowed home. Symptomatic treatment. She is sent home with percocet for continued headache today. Hydration. return for any worsening symptoms. Lab Data 08/14/25 00:39 08/14/25 00:[address] 08/14/25 00:40 IMPRESSION: No acute intracranial abnormality. Laboratory Results WBC 9.69 10^3/uL (3.29-11.43) 08/14/25 00:39 RBC 3.84 10^6/uL (3.85-5.65) L 08/14/25 00:39 Hgb 10.10 g/dL (11.27-16.99) L 08/14/25 00:39 Hct 31.8 % (36-47) L 08/14/25 00:39 MCV 82.8 fl (85-98) L 08/14/25 00:39 MCH 26.3 pg (27-33) L 08/14/25 00:39 MCHC 31.8 g/dL (30-55) 08/14/25 00:39 RDW 18.6 % (12.1-15.1) H 08/14/25 00:39 Plt Count 445 10^3/cmm (157-399) H 08/14/25 00:39 MPV 9.4 fL (7.4-10.4) 08/14/25 00:39 Neut % (Auto) 84.9 % 08/14/25 00:39 Lymph % (Auto) 3.6 % 08/14/25 00:39 [place] % (Auto) 8.7 % 08/14/25 00:39 Eos % (Auto) 1.7 % 08/14/25 00:39 Baso % (Auto) 0.5 % 08/14/25 00:39 Neut # (Auto) 8.23 10^3/uL (1.8-7.7) H 08/14/25 00:39 Lymph # (Auto) 0.4 10^3/uL (0.8-4.8) L 08/14/25 00:39 [place] # (Auto) 0.8 10^3/uL (0.2-0.9) 08/14/25 00:39 Eos # (Auto) 0.2 10^3/uL (0.0-0.8) 08/14/25 00:39 Baso # (Auto) 0.1 10^3/uL (0.0-0.1) 08/14/25 00:39 Nucleated RBC % (auto) 0 % 08/14/25 00:39 Nucleated RBCs # 0.0 /100WBC 08/14/25 00:39 PT 13.20 SECONDS (12.1-14.9) 08/14/25 00:39 INR 0.93 (0.8-1.2) 08/14/25 00:39 APTT 25.5 SECONDS (23.9-36.7) 08/14/25 00:39 Sodium 135 mmol/L (136-145) L 08/14/25 00:39 Potassium 3.7 mmol/L (3.5-5.1) 08/14/25 00:39 Chloride 97 mmol/L (98-107) L 08/14/25 00:39 Carbon Dioxide 24 mmol/L (22-29) 08/14/25 00:39 Anion Gap 17.7 (5-19) 08/14/25 00:39 BUN 9 mg/dL (6-20) 08/14/25 00:39 Creatinine 0.7 mg/dL (0.5-0.9) 08/14/25 00:39 GFR Calculation 90.1 mL/min (90-130) 08/14/25 00:39 Glucose 128 mg/dL (65-115) H 08/14/25 00:39 POC Glucose 128 mg/dL (70-110) H 08/14/25 00:37 Calculated Osmolality 280 mOsm/kg (285-295) L 08/14/25 00:39 Calcium 9.1 mg/dL (8.5-10.5) 08/14/25 00:39 Total Bilirubin 0.3 mg/dL (0.15-1.2) 08/14/25 00:39 AST 88 U/L (0-32) H 08/14/25 00:39 ALT 58 U/L (0-33) H 08/14/25 00:39 Alkaline Phosphatase 78 U/L (35-105) 08/14/25 00:39 Total Protein 7.3 g/dL (6.6-8.7) 08/14/25 00:39 Albumin 4.4 g/dL (3.5-5.2) 08/14/25 00:39 Globulin 2.9 g/dL (1.3-4.6) 08/14/25 00:39 Urine Color Dark yellow (Yellow) A 08/14/25 02:10 Urine Appearance Cloudy (CLEAR) A 08/14/25 02:10 Urine pH 7.0 (5-7) 08/14/25 02:10 Ur Specific [place] 1.032 (1.005-1.030) H 08/14/25 02:10 Urine Protein 2+ (Negative) A 08/14/25 02:10 Urine Glucose (UA) Negative (Normal) 08/14/25 02:10 Urine Ketones 1+ (Negative) H 08/14/25 02:10 Urine Blood 3+ (Negative) A 08/14/25 02:10 Urine Nitrate Negative (Negative) 08/14/25 02:10 Urine Bilirubin 1+ (Negative) H 08/14/25 02:10 Urine Urobilinogen 1.0 mg/dL (Negative) 08/14/25 02:10 Ur Leukocyte Esterase Trace (Negative) A 08/14/25 02:10 Urine RBC >100 /hpf (0-2) H 08/14/25 02:10 Urine WBC 0-5 /hpf (0-5) 08/14/25 02:10 Ur Squamous Epith Cells 0-5 /hpf (0-5) 08/14/25 02:10 Amorphous Sediment Not Reportable 08/14/25 02:10 Urine Bacteria None seen /hpf (NONE) 08/14/25 02:10 Hyaline Casts 2.87 /lpf 08/14/25 02:10 Influenza A (PCR) Negative (Negative) 08/14/25 02:18 Influenza Type B (PCR) Negative (Negative) 08/14/25 02:18 RSV (PCR) Negative (Negative) 08/14/25 02:18 SARS-CoV-2 (PCR) Positive (Negative) A 08/14/25 02:18 All radiology interpretation(s) finalized by discharge Discharge Plan Discharge Patient Disposition: Home Clinical Impression: Headache, migraine, COVID-19 Condition: Stable Prescriptions: No Action nortriptyline 10 mg capsule 10 mg PO DAILY albuterol sulfate 90 mcg/actuation HFA aerosol inhaler 2 puff INHALATION Q6H PRN (Reason: shortness of breath or wheezing) 30 Days Qty: 8.5 6RF losartan 50 mg tablet 50 mg PO BID metformin 500 mg tablet 500 mg PO DAILY magnesium glycinate 100 mg tablet 100 mg PO DAILY prednisone 10 mg tablet See Rx Instructions PO .COMPLEX PRN (Reason: joint pain) Qty: 30 1RF Rx Instructions: take 1 tab daily for 3-7 days prn joint pain flare PO PRN; clobetasol 0.05 % cream 1 applic topical BID 14 Days Qty: 60 1RF pregabalin [Lyrica] 200 mg capsule 200 mg PO BID Qty: 180 1RF duloxetine 60 mg capsule,delayed release(DR/EC) 60 mg PO DAILY Qty: 90 1RF folic acid 1 mg tablet 1 mg PO DAILY Qty: 90 1RF hydroxychloroquine 200 mg tablet 200 mg PO BID Qty: 180 1RF methotrexate sodium 2.5 mg tablet See Rx Instructions PO .Q7days Qty: 90 1RF Rx Instructions: take 6 tabs on same day once a week PO .Q7days; prednisone 5 mg tablet 5 mg PO DAILY Qty: 90 1RF cholecalciferol (vitamin D3) 1,250 mcg (50,000 unit) capsule 50,000 unit PO Q7D 90 Days Qty: 15 0RF tramadol 50 mg tablet 50 mg PO BID PRN (Reason: pain (scale score 7-10)) Qty: 60 1RF Discharge Orders: Discharge ED (Routine); Ordered 08/14/25 Ordered By: Anuj Borges Referrals: Silvia Freeman MD [Primary Care Provider, [facility]] - 1-3 days Patient Instructions: Acute Headache (ED), Opioid Safety, Pain Management, Patient Portal & [place] Instructions Activity Restrictions/Additional Instructions: Return for return of headache, neck stiffness, development of fever greater than 100.4, mental status changes, weakness, any other concerning symptoms. Stay hydrated. Follow-up with your doctor this week. Print Language: Bulgarian Coding Level of Care Code ED Superintendent Stevedoring for Bandar Fleming
[2025-08-14 02:21] LABS: Glucose Urine UA Negative (Normal); Nitrate Urine Negative (Negative)
[2025-08-14 02:24] LABS: Add Urine Microscopic? YES
[2025-08-14 02:31] LABS: Specific Gravity, Urine 1.032 (1.005-1.030)
[2025-08-14 02:57] LABS: Respiratory Syncytial Virus Ce NEGATIVE (Negative)
[2025-08-14 03:13] LABS: SARS-CoV-2 PCR Positive (Negative)
[2025-08-14] MEDS: oxyCODONE-APAP 5-325 mg Tablet 2 TAB PO (03:21)
== END 2025-08-14 03:28 | disposition home or self-care (01) ==
PROVIDERS: Emergency Provider Emergency Medicine; PCP Family Medicine
DX: G43.909 Migraine, unspecified, not intractable, without status migrainosus (principal); U07.1 COVID-19; Z11.52 Encounter for screening for COVID-19; Z79.84 Long term (current) use of oral hypoglycemic drugs; I10 Essential (primary) hypertension
CPT/HCPCS: 36416; 70450; 80053; 81001; 82962; 85025; 85610; 85730; 87086; 87637; 93005; 96361; 96374; 96375; 99285; J1100; J1885; J2765; J3010; J3490; J7040; J9999